=== PATIENT | male | born 1965 | race Two or more races ===

== ENCOUNTER 2018-09-03 07:18 | Emergency (ER) | payer BC ==
[~2018-09-03] VITALS: Ht 188 cm; Wt 122.0 kg
[2018-09-03] MEDS ORDERED: ACETAMINOPHEN 325 MG TAB PO ONE (07:45)
[2018-09-03 09:01] LABS: Basophils # (auto) 0.1 uL; Basophils % (auto) 0.5 % (0.0-2.0); Eosinophils # (auto) 0 uL; Eosinophils % (auto) 0.1 % (0.0-7.0); Hematocrit 44.8 % (41.0-53.0); Hemoglobin 15.1 g/dL (13.5-17.5); Lymphocytes # (auto) 0.8 uL; Lymphocytes % (auto) 6.1 % (10.0-50.0); Mean Corpuscular Hemoglobin 31.3 pg (28.0-32.0); Mean Corpuscular Hgb Conc. 33.6 g/dL (32.0-36.0); Monocytes # (auto) 0.7 uL; Neutrophils # (auto) 11.7 uL; Neutrophils % (auto) 88.3 % (37.0-80.0); Nucleated Red Blood Cells % 0.1 %; Platelet Count (auto) 233 10^3/uL (140-450); Red Blood Cells 4.82 10^6/uL (4.5-5.90); Red Cell Distribution Width 13.3 % (11.8-14.3); White Blood Cell 13.2 10^3/uL (4.4-10.8)
[2018-09-03 09:20] LABS: INR 0.95 (0.9-1.15); Partial Thromboplastin Time 22.4 sec (23.64-32.05); Prothrombin Time 10.3 sec (9.06-12.60)
[2018-09-03] MEDS ORDERED: SODIUM CHLORIDE 0.9% 1,000 ML IV ONE ×2 (09:20)
[2018-09-03 09:21] LABS: Albumin 3.5 g/dL (3.4-5.0); Potassium 3.9 mmol/L (3.5-5.1)
[2018-09-03 09:24] LABS: Bilirubin, Total 0.5 mg/dL (0.2-1.0); Total Protein 7.2 g/dL (6.4-8.2)
[2018-09-03] MEDS ORDERED: cefTRIAXone 1GM/50ML D5W 50 ML IV ONE (09:30)
[2018-09-03 10:01] VITALS: BP 99/58
[2018-09-03 12:18] LABS: Urine Bacteria FEW /hpf (None Seen); Urine Blood Negative /uL (Negative); Urine Mucus FEW (None Seen); Urine Specific Gravity 1.029 (1.001-1.035); Urine WBC 14 /hpf (0 - 3)
== END 2018-09-03 12:41 | disposition home or self-care (01) ==
LOC: ER 07:18
DX: N39.0 Urinary tract infection, site not specified (principal); E11.9 Type 2 diabetes mellitus without complications; I10 Essential (primary) hypertension
CPT/HCPCS: 36415; 71045; 80053; 81001; 83605; 85025; 85610; 85730; 87040; 93005; 94761; 96365; 99284; J0696; J7030

== ENCOUNTER 2021-04-17 20:06 | Emergency (ER) | payer BC ==
[~2021-04-17] VITALS: Ht 188 cm; Wt 120.2 kg
[2021-04-17 20:06] VITALS: BP 118/79
[2021-04-18 00:02] LABS: Basophils # (auto) 0 10 ^3/uL (0-0.2); Basophils % (auto) 0.5 % (0.0-2.0); Eosinophils # (auto) 0.1 10 ^3/uL (0-0.8); Hematocrit 48.7 % (41.0-53.0); Hemoglobin 16.8 g/dL (13.5-17.5); Lymphocytes # (auto) 0.9 10 ^3/uL (0.4-5.4); Lymphocytes % (auto) 13.6 % (10.0-50.0); Mean Corpuscular Hemoglobin 31.4 pg (28.0-32.0); Mean Corpuscular Hgb Conc. 34.6 g/dL (32.0-36.0); Mean Corpuscular Volume 90.9 fL (80.0-100.0); Monocytes % (auto) 14.7 % (0.0-12.0); Neutrophils # (auto) 4.8 10 ^3/uL (1.6-8.6); Neutrophils % (auto) 70.2 % (37.0-80.0); Nucleated Red Blood Cells % 0.2 %; Red Blood Cells 5.36 10^6/uL (4.5-5.90); Red Cell Distribution Width 13.2 % (11.8-14.3); White Blood Cell 6.8 10^3/uL (4.4-10.8)
[2021-04-18 00:22] LABS: Albumin 3.9 g/dL (3.4-5.0); Calcium 10.4 mg/dL (8.5-10.1)
[2021-04-18 00:24] LABS: Bilirubin, Total 0.8 mg/dL (0.2-1.0); Potassium 4.6 mmol/L (3.5-5.1); Total Protein 8.3 g/dL (6.4-8.2)
[2021-04-18] MEDS ORDERED: InsuLIN REG 1unit/0.01ml Soln (100units/ml) IV ONE (02:30)
[2021-04-18] MEDS ORDERED: InsuLIN REG 1unit/0.01ml Soln (100units/ml) SC ONE (07:45)
[2021-04-18] MEDS ORDERED: SODIUM CHLORIDE 0.9% 1,000 ML IV ONE ×2 (07:45→10:00)
== END 2021-04-18 12:50 | disposition home or self-care (01) ==
LOC: ER 20:10
DX: J06.9 Acute upper respiratory infection, unspecified (principal); E11.65 Type 2 diabetes mellitus with hyperglycemia; I10 Essential (primary) hypertension
CPT/HCPCS: 36415; 71045; 80053; 82010; 82962; 85025; 93005; 96361; 96372; 96374; 99285; J1815; J7030

== ENCOUNTER 2024-12-15 02:39 | Inpatient (IN) | payer BC, OTHER ==
[2024-12-14 18:10] VITALS: BP 112/55; PULSE 89; RESP 20; TEMP 97.7; O2SAT 92
[~2024-12-15] VITALS: Ht 188 cm; Wt 106.3 kg
--- NOTE | 2024-12-15 03:12 | ED.PDOC ---
Musculoskeletal HPI Comments 58-year-old male who came to ER for left foot pain. Patient has a history of diabetes, states for the past 5 days, he has been having redness and swelling of the left foot, with blackish discoloration. Seen and was prescribed doxycycline, however has offered no relief. Denies any fever, Chief Complaint: Lower Extremity Time Seen by MD: 03:10 Primary Care Provider: ? Reviewed Notes: Nurses Notes Allergies: Coded Allergies: NO KNOWN ALLERGIES (Unverified , 09/03/18) Mode of Arrival: Ambulatory Location: Left Extremity Location: Foot Timing: Days Prehospital treatment: None Severity: Moderate Able to Move Extremity: Yes Bear Weight: Fully Pain: Moderate Mechanism: Spontaneous Circumstances: Other (Diabetic) Onset of Symptoms: Spontaneous Symptoms: Swelling, Pain Associated signs and symptoms: Foot pain (Left) Past Medical History PAST MEDICAL HISTORY: DM, HTN Surgical History: Denies all surgeries Family History Family History: Reviewed,noncontributory to illness Social History Smoker: Non-Smoker Alcohol: Denies ETOH Use Drugs: Denies Drug Use Lives In: Home Constitutional: denies: chills, diaphoresis, fatigue, fever, malaise, sweats, weakness, others EENTM: denies: blurred vision, double vision, ear bleeding, ear discharge, ear drainage, ear pain, ear ringing, eye pain, eye redness, hearing loss, mouth pain, mouth swelling, nasal discharge, nose bleeding, nose congestion, nose pain, photophobia, tearing, throat pain, throat swelling, voice changes, others Respiratory: denies: cough, hemoptysis, orthopnea, SOB at rest, shortness of breath, SOB with excertion, stridor, wheezing, others Cardiovascular: denies: chest pain, dizzy spells, diaphoresis, Dyspnea on e xertion, edema, irregular heart beat, left arm pain, lightheadedness, palpitations, PND, syncope, others Gastrointestinal: denies: abdomen distended, abdominal pain, blood streaked bowels, constipated, diarrhea, dysphagia, difficulty swallowing, hematemesis, melena, nausea, poor appetite, poor fluid intake, rectal bleeding, rectal pain, vomiting, others Genitourinary: denies: burning, dysuria, flank pain, frequency, hematuria, incontinence, penile discharge, penile sore, pain, testicle pain, testicle swelling, urgency, others Neurological: denies: dizziness, fainting, headache, left sided numbness, left sided weakness, numbness, paresthesia, pre-existing deficit, right sided numbness, right sided weakness, seizure, speech problems, tingling, tremors, weakness, others Musculoskeletal: reports: others (Left foot redness); denies: back pain, gout, joint pain, joint swelling, muscle pain, muscle stiffness, neck pain Integumetry: denies: bruises, change in color, change in hair/nails, dryness, laceration, lesions, lumps, rash, wounds, others Allergic/Immunocompromised: denies: Difficulty Healing, Frequent Infections, Hives, Itching, others Hematologic/Lymphatic: denies: anemia, blood clots, easy bleeding, easy bruising, swollen glands, others Endocrine: denies: excessive hunger, excessive sweating, excessive thirst, excessive urination, flushing, intolerance to cold, intolerance to heat, unexplained weight gain, unexplained weight loss, others Psychiatric: denies: anxiety, bipolar disorder, depression, hopeless, panic disorder, schizophrenia, sleepless, suicidal, others Physical Exam General Appearance: No Apparent Distress, Normal HEENT: Normal ENT Inspection, Pharynx Normal, TMs Normal Neck: Full Range of Motion, Non-Tender, Normal, Normal Inspection Respiratory: Chest Non-Tender, Lungs Clear, No Accessory Muscle Use, No Respira tory Distress, Normal Breath Sounds Cardiovascular: No Edema, No JVD, No Murmur, No Gallop, Normal Peripheral Pulses, Regular Rate/Rhythm Breast Exam: Deferred Gastrointestinal: No Organomegaly, Non Tender, No Pulsatile Mass, Normal Bowel Sounds, Soft Genitalia: Deferred Pelvic: Deferred Rectal: Deferred Extremities: No calf tenderness, Normal capillary refill, Normal inspection, Normal range of motion, Non-tender, No pedal edema Musculoskeletal : Apperance: Normal Neurologic: Alert, shorthand reporter II-XII nml as Tested, No Motor Deficits, Normal Affect, Normal Mood, No Sensory Deficits Cerebellar Function: Normal Reflexes: Normal Skin: Dry, Normal Color, Warm Lymphatic: No Adenopathy Was a procedure done? Was a procedure done?: No Differential Diagnosis EXT Differential Diagnosis: Cellulitis, Deep Vein Thrombosis, Other (Osteomyelitis) Other Differential Diagnosis Diabetic foot X-Ray, Labs, Meds, VS Vital Signs Date Time Temp Pulse Resp B/P (MAP) Pulse Ox O2 Delivery O2 Flow Rate FiO2 12/15/24 02:40 97.7 116 20 123/80 97 97.7 Lab Test 12/15/24 03:05 Range/Units White Blood Count 7.9 4.4-10.8 10^3/uL Red Blood Count 4.93 4.5-5.90 10^6/uL Hemoglobin 16.1 13.5-17.5 g/dL Hematocrit 45.2 41.0-53.0 % Mean Corpuscular Volume 91.8 80.0-100.0 fL Mean Corpuscular Hemoglobin 32.8 H 28.0-32.0 pg Mean Corpuscular Hemoglobin Concent 35.7 32.0-36.0 g/dL Red Cell Distribution Width 12.5 11.8-14.3 % Platelet Count 257 140-450 10^3/uL Mean Platelet Volume 7.8 6.9-10.8 fL Neutrophils (%) (Auto) 51.2 37.0-80.0 % Lymphocytes (%) (Auto) 35.6 10.0-50.0 % Monocytes (%) (Auto) 10.8 0.0-12.0 % Eosinophils (%) (Auto) 2.0 0.0-7.0 % Basophils (%) (Auto) 0.4 0.0-2.0 % Neutrophils # (Auto) 4.0 1.6-8.6 10 ^3/uL Lymphocytes # (Auto) 2.8 0.4-5.4 10 ^3/uL Monocytes # (Auto) 0.9 0-1.3 10 ^3/uL Eosinophils # (Auto) 0.2 0-0.8 10 ^3/uL Basophils # (Auto) 0 0-0.2 10 ^3/uL Nucleated Red Blood Cells 0.0 % Sodium Level 135 L 136-145 mmol/L Potassium Level 4.0 3.5-5.1 mmol/L Chloride Level 102 98-107 mmol/L Carbon Dioxide Level 22 20-31 mmol/L Anion Gap 11 5-15 Blood Urea Nitrogen 13 9-23 mg/dL Creatinine 0.79 0.700-1.30 mg/dL Glomerular Filtration Rate Calc 104 >90 mL/min BUN/Creatinine Ratio 16.5 10.0-20.0 Serum Glucose 341 H 74-106 mg/dL Lactic Acid Level 1.1 0.4-2.0 mmol/L Calcium Level 10.3 8.7-10.4 mg/dL Total Bilirubin 0.7 0.2-1.0 mg/dL Aspartate Amino Transferase (AST) 17 13-40 U/L Alanine Aminotransferase (ALT) 23 7-40 U/L Alkaline Phosphatase 96 46-116 U/L Total Protein 7.8 5.7-8.2 g/dL Albumin 4.6 3.2-4.8 g/dL Time of 1ST Reevaluation: 03:07 Reevaluation 1ST: Unchanged Patient Education/Counseling: Diagnosis, Treatment Family Education/Counseling: No Family Present Sepsis Sepsis Reasesment Focused Exam Orders: Laboratory Tests 12/15/24 03:05: Lactic Acid Level 1.1 Departure 1 Departure Time of Disposition: 04:28 Impression: Primary Impression: Hyperglycemia Additional Impression: Cellulitis of left foot Disposition: ADMITTED INPATIENT Admit to: Med Surg Condition: Guarded Comments 58-year-old male with a history of poorly controlled diabetes now with left foot redness and swelling and pain. The foot is quite swollen and erythematous. Blood sugar is high at 350. Patient was given IV fluids and IV Ancef and vancomycin antibiotics. I suspect diabetic left foot cellulitis. Also uncontrolled type 2 diabetes with hyperglycemia. patient will need admission for supportive care and further workup. Critical Care Note Critical Care Time?: No Stability Stability form required: No Heart Score Heart Score: Heart Score Response (Comments) Value History N/A 0 EKG N/A 0 Age N/A 0 Risk Factors N/A 0 Troponin N/A 0 Total 0 I personally scribed for MARILIA ROMO MD ([email or web address]) on 12/15/24 at 03:12. Electronically submitted by Jean Marie Block ([email or web address]). MARILIA ROMO MD Dec 15, 2024 03:12
[2024-12-15 03:29] LABS: Hematocrit 45.2 % (41.0-53.0); Hemoglobin 16.1 g/dL (13.5-17.5); Mean Corpuscular Hemoglobin 32.8 pg (28.0-32.0); Mean Corpuscular Volume 91.8 fL (80.0-100.0); Nucleated Red Blood Cells % 0.0 %
[2024-12-15 03:47] LABS: Alanine Aminotransferase 23 U/L (7-40); Albumin 4.6 g/dL (3.2-4.8); Alkaline Phosphatase 96 U/L (46-116); Anion Gap 11 (5-15); BUN/Creatinine Ratio 16.5 (10.0-20.0); Bilirubin, Total 0.7 mg/dL (0.2-1.0); Blood Urea Nitrogen 13 mg/dL (9-23); Calcium 10.3 mg/dL (8.7-10.4); Carbon Dioxide 22 mmol/L (20-31); Chloride 102 mmol/L (98-107); Potassium 4.0 mmol/L (3.5-5.1); Total Protein 7.8 g/dL (5.7-8.2)
--- NOTE | 2024-12-15 03:53 | DVH ---
CLINICAL INDICATION: red swelling TECHNIQUE: XY L FOOT 3 VIEW XRAY Comparison: None FINDINGS/IMPRESSION: : There is no evidence of acute fracture or dislocation. Soft tissues are unremarkable. Atherosclerotic vascular calcifications
[2024-12-15 04:06] LABS: Glucose 341 mg/dL (74-106); Sodium 135 mmol/L (136-145)
[2024-12-15] MEDS: InsuLIN REG 1unit/0.01ml Soln (100units/ml) SC ONE (04:30)
[2024-12-15] MEDS: SODIUM CHLORIDE 0.9% 1,000 ML IV ONE (04:30)
[2024-12-15] MEDS: VANCOMYCIN 1GM/250ML KIT 250 ML IV ONE (09:00)
[2024-12-15] MEDS ORDERED: ACETAMINOPHEN 325 MG TAB PO PRN (09:45)
[2024-12-15] MEDS ORDERED: DEXTROSE (50%) 50ML SYRG IV PRN (09:45)
--- NOTE | 2024-12-15 09:47 | DVHHP2 ---
History of Present Illness History of Present Illness This is a 68-year-old male with past medical history of Type 2 diabetes mellitus not on any medication. Patient came to ER with left foot pain with redness dorso-lateral aspect of left foot for 5 days which is 10/10 during walking , and relieved mildly on rest, localized and occasionally radiate to tip of the finger. Denies any trauma or insect bite. Patient went to urgent care and prescribed doxycycline which does not helps and wound became getting worse day by day. He is not taking any medicine for last 1 year. Patient currently denies any fever, SOB, chest pain, abdominal pain, dysuria or any other acute distress. PAST MEDICAL HISTORY: DM2. Surgical History: Denies all surgeries Family History: father bone cancer, grandmother unknown cancer Social History: Smoker: Non-Smoker Alcohol: occasional ETOH Use Drugs: Denies Drug Use Lives In: Home pcp: not selected Review of Systems Constitutional: Yes: Malaise; No: Fever, Chills, Sweats, Weakness, Other Eyes: No: Pain, Vision change, Conjunctivae inflammation, Eyelid inflammation, Other, Redness ENT: No: Ear pain, Ear discharge, Nose pain, Nose discharge, Nose congestion, Mouth pain, Mouth swelling, Throat pain, Throat swelling, Other Respiratory: No: Cough, Dry, Shortness of breath, SOB with excertion, Wheezing, Hemoptysis, Pleuritic Pain, Sputum, Wheezing, Other Cardiovascular: No: Chest Pain, Palpitations, Orthopnea, Paroxysmal Noc. Dy spnea, Edema, Lt Headedness, Other Gastrointestinal: No: Nausea, Vomiting, Abdominal Pain, Diarrhea, Constipation, Melena, Hematochezia, Other Genitourinary: No Dysuria, No Frequency, No Incontinence, No Hematuria, No Retention, No Other Musculoskeletal: foot pain (Erythema and local swelling dorsolateral aspect of left foot); No: other, neck pain, shoulder pain, arm pain, back pain, hand pain, leg pain Skin: No: Rash, Lesions, Jaundice, Bruising, Other Neurological: No: Weakness, Numbness, Incoordination, Change in speech, Confusion, Seizures, Other Allergies: Coded Allergies: NO KNOWN ALLERGIES (Unverified , 09/03/18) Medications Current Medications Medications Dose Ordered Sig/Ilir Route Start Time Stop Time Status Last Admin Dose Admin Sodium Chloride 1,000 ml @ 75 mls/hr [id number] IV 12/15/24 09:45 UNV Acetaminophen 325 mg Q4HP PRN PO 12/15/24 09:45 UNV Acetaminophen/ Hydrocodone Bitart 1 tab Q4HP PRN PO 12/15/24 09:45 UNV Zinc Sulfate 220 mg DAILY PO 12/15/24 10:00 UNV Ascorbic Acid 500 mg BID PO 12/15/24 10:00 UNV Enoxaparin Sodium 40 mg DAILY SC 12/15/24 10:00 UNV Exam Vital Signs Vital Signs Date Time Temp Pulse Resp B/P (MAP) Pulse Ox O2 Delivery O2 Flow Rate FiO2 12/15/24 08:02 97 12/15/24 06:50 20 96 Room Air 12/15/24 06:50 98.7 126/83 (97) 98.7 General Appearance: Alert, Oriented X3, Cooperative, No acute distress, mild distress HEENT: Atraumatic, PERRLA Respiratory: Clear to auscultation, Normal air movement Cardiovascular: Regular rate, Normal S1, Normal S2, No murmurs Abdominal: Normal bowel sounds, Soft, No tenderness, No hepatospenomegaly Extremities: No clubbing, No cyanosis, Other (Mild erythema and edema localized dorsal aspect of left foot) Neuro: Normal gait, Normal speech, Strength at 5/5 X4 ext Labs/Xrays Labs Test 12/15/24 07:21 12/15/24 03:05 Range/Units POC Glucose 306 H 70-106 mg/dl White Blood Count 7.9 4.4-10.8 10^3/uL Red Blood Count 4.93 4.5-5.90 10^6/uL Hemoglobin 16.1 13.5-17.5 g/dL Hematocrit 45.2 41.0-53.0 % Mean Corpuscular Volume 91.8 80.0-100.0 fL Mean Corpuscular Hemoglobin 32.8 H 28.0-32.0 pg Mean Corpuscular Hemoglobin Concent 35.7 32.0-36.0 g/dL Red Cell Distribution Width 12.5 11.8-14.3 % Platelet Count 257 140-450 10^3/uL Mean Platelet Volume 7.8 6.9-10.8 fL Neutrophils (%) (Auto) 51.2 37.0-80.0 % Lymphocytes (%) (Auto) 35.6 10.0-50.0 % Monocytes (%) (Auto) 10.8 0.0-12.0 % Eosinophils (%) (Auto) 2.0 0.0-7.0 % Basophils (%) (Auto) 0.4 0.0-2.0 % Neutrophils # (Auto) 4.0 1.6-8.6 10 ^3/uL Lymphocytes # (Auto) 2.8 0.4-5.4 10 ^3/uL Monocytes # (Auto) 0.9 0-1.3 10 ^3/uL Eosinophils # (Auto) 0.2 0-0.8 10 ^3/uL Basophils # (Auto) 0 0-0.2 10 ^3/uL Nucleated Red Blood Cells 0.0 % Sodium Level 135 L 136-145 mmol/L Potassium Level 4.0 3.5-5.1 mmol/L Chloride Level 102 98-107 mmol/L Carbon Dioxide Level 22 20-31 mmol/L Anion Gap 11 5-15 Blood Urea Nitrogen 13 9-23 mg/dL Creatinine 0.79 0.700-1.30 mg/dL Glomerular Filtration Rate Calc 104 >90 mL/min BUN/Creatinine Ratio 16.5 10.0-20.0 Serum Glucose 341 H 74-106 mg/dL Lactic Acid Level 1.1 0.4-2.0 mmol/L Calcium Level 10.3 8.7-10.4 mg/dL Total Bilirubin 0.7 0.2-1.0 mg/dL Aspartate Amino Transferase (AST) 17 13-40 U/L Alanine Aminotransferase (ALT) 23 7-40 U/L Alkaline Phosphatase 96 46-116 U/L Total Protein 7.8 5.7-8.2 g/dL Albumin 4.6 3.2-4.8 g/dL SEPSIS Sepsis Screen Date sepsis recognized/suspect: Dec 15, 2024 Time Sepsis recognized/suspect: 06 Recent Procedure: No On Antibiotic Therapy: No Respiratory Rate >20: No Heart Rate >90: No Temp<36 C (96.8 F) or >38.3 C: No SBP <90 or MAP <65 mmHG: No New Acute Mental Status Change: No Is the patient on CPAP, BIPAP,: No Physician Orders Blood Culture (12/15/24 03:06) L Foot 3 View Xray (12/15/24 03:06) Retail Branch Manager (12/15/24 ) Admit (12/15/24 09:37) Code Status (12/15/24 09:37) Sodium Chloride 0.9% (12/15/24 09:45) Acetaminophen Tablet (Tylenol Tablet) (12/15/24 09:45) Hydrocodone-Acet 5/325mg Tab ([place] 5/32 (12/15/24 09:45) Zinc Sulfate (12/15/24 10:00) Ascorbic Acid Tablet (Vitamin C Tablet) (12/15/24 10:00) Condition: Fair (12/15/24 09:37) Enoxaparin Sodium (Lovenox) (12/15/24 10:00) Notify Of Changes From Base (12/15/24 09:37) Consistent Carb(Ccho)Diabetes (12/15/24 Lunch) Glucose Blood (Accu-Chek Comfort Curve T (12/15/24 11:30) Mild Sliding Scale (12/15/24 11:30) Dextrose 50% Syringe (12/15/24 09:45) Vital Signs Date Time Temp Pulse Resp B/P (MAP) Pulse Ox O2 Delivery O2 Flow Rate FiO2 12/15/24 08:02 97 12/15/24 06:50 118 20 96 Room Air 12/15/24 06:50 98.7 118 20 126/83 (97) 96 98.7 12/15/24 02:40 97.7 116 20 123/80 97 97.7 Laboratory Tests Test 12/15/24 03:05 Lactic Acid Level 1.1 mmol/L (0.4-2.0) White Blood Count 7.9 10^3/uL (4.4-10.8) Medications Medications Dose Ordered Sig/Ilir Route Start Time Stop Time Status Last Admin Dose Admin Insulin Human Regular 4 units ONCE ONCE SC 12/15/24 04:30 12/15/24 04:31 DC 12/15/24 04:30 4 UNITS Sodium Chloride 1,000 ml @ 1,000 mls/hr Q1H ONCE IV 12/15/24 04:30 12/15/24 05:29 DC 12/15/24 04:30 1,000 MLS/HR Vancomycin HCl 250 ml @ 250 mls/hr ONCE ONCE IV 12/15/24 03:15 12/15/24 04:14 DC 12/15/24 09:00 250 MLS/HR Assessment/Plan Assessment/Plan Left foot cellulitis Gram-positive or Gram-negative bacteria SIRS not sepsis Left foot pain X-ray left foot: There is no evidence of acute fracture or dislocation. Soft tissues are unremarkable. In ER patient received vanco and cefazolin Started Zosyn and vancomycin Blood culture sent Intravenous fluid Pain management Hyponatremia Serum sodium level 135 BMP Type 2 diabetes mellitus with hyperglycemia CMP glucose 306 Patient not on any medication Avoid sugar and sugar containing food Hemoglobin A1c Insulin sliding scale Diet :carbohydrate consistent GI prophylaxis: Pantoprazole 40 mg p.o. daily DVT prophylaxis: Lovenox 40 mg sc daily Goals of care discussions. More than 23 minute spent with patient. Full code status. Case discussed with Dr. Golden Plan discussed with: Patient, Other (Nurse) My Orders Orders - LANCE PENALOZA Procedure Category Date Status Time Admit ADMIT 12/15/24 Transmitted 09:37 Code Status CODE 12/15/24 Transmitted 09:37 Sodium Chloride 0.9% PHA 12/15/24 Logged 09:45 Acetaminophen Tablet PHA 12/15/24 Logged (Tylenol Tablet) 09:45 Hydrocodone-Acet PHA 12/15/24 Logged 5/325mg Tab ([place] 09:45 Zinc Sulfate PHA 12/15/24 Logged 10:00 Ascorbic Acid Tablet PHA 12/15/24 Logged (Vitamin C Tablet) 10:00 Condition: Fair PARMINDER 12/15/24 In Process 09:37 Enoxaparin Sodium PHA 12/15/24 Logged (Lovenox) 10:00 Notify Of Changes PARMINDER 12/15/24 In Process From Base 09:37 Consistent DIET 12/15/24 Transmitted Carb(Ccho)Diabetes Lunch Glucose Blood PHA 12/15/24 Verified (Accu-Chek Comfort 11:30 Mild Sliding Scale PHA 12/15/24 Verified 11:30 Dextrose 50% Syringe PHA 12/15/24 Verified 09:45 Date of Service: Dec 15, 2024 Billing Provider: PEPITO GOLDEN MD Common Visit Codes: [id number] INP/OBS CARE (HIGH) Secondary Visit Codes: [id number] CARE PLAN 30 MINUTES LANCE PENALOZA RESIDENT Dec 15, 2024 09:47
[2024-12-15] MEDS: ACCU-CHEK COMFORT CURVE STRIP VI SCH (11:30)
[2024-12-15] MEDS ORDERED: InsuLIN REG 1unit/0.01ml Soln (100units/ml) SC SCH (11:30)
[2024-12-15] MEDS: ceFAZolin 1GM/50ML 50 ML IV ONE (12:12)
[2024-12-15] MEDS: ZINC SULFATE 220mg CAP or TAB PO SCH (14:03)
[2024-12-15] MEDS: SODIUM CHLORIDE 0.9% 1,000 ML IV SCH (14:04)
[2024-12-15] MEDS: ENOXAPARIN SOD 40 MG/0.4 ML SYRINGE SC SCH (14:04)
[2024-12-15] MEDS: ASCORBIC ACID 500 MG TAB PO SCH (14:04)
[2024-12-15] MEDS: INSULIN LISPRO (HUMAN) 100 UNITS/ML ML SC SCH (15:30)
[2024-12-15] MEDS ORDERED: VANCOMYCIN PER PHARMACY 0 MG IV SCH (16:30)
[2024-12-15] MEDS ORDERED: INSULIN LISPRO (HUMAN) 100 UNITS/ML ML SC SCH (17:00)
[2024-12-15] MEDS: PIPERACILLIN-TAZOB 3.375GM 100 ML IV ONE (17:24)
[2024-12-15 18:09] VITALS: BP 126/73; PULSE 88; RESP 16; TEMP 98.4; O2SAT 97
[2024-12-15 19:28] VITALS: BP 112/69; PULSE 93; RESP 15; TEMP 98.8; O2SAT 96
[2024-12-15] MEDS: VANCOMYCIN 1GM/250ML KIT 250 ML IV SCH (19:59)
[2024-12-15 21:33] VITALS: PULSE 78; RESP 18; O2SAT 96
[2024-12-15] MEDS: PIPERACILLIN-TAZOB 3.375GM 100 ML IV SCH (23:53)
[2024-12-16] VITALS (7 sets, daily range): BP systolic 105–134; BP diastolic 67–83; PULSE 78–85; RESP 16–20; TEMP 97.5–98.5; O2SAT 95–98
[2024-12-16] MEDS: HYDROcodone-ACET 5/325MG TAB PO PRN (00:05)
[2024-12-16 06:26] LABS: Anion Gap 8 (5-15); Carbon Dioxide 25 mmol/L (20-31); Chloride 103 mmol/L (98-107); Potassium 4.2 mmol/L (3.5-5.1)
[2024-12-16 06:27] LABS: Calcium 9.3 mg/dL (8.7-10.4)
[2024-12-16 06:32] LABS: BUN/Creatinine Ratio 15.7 (10.0-20.0); Blood Urea Nitrogen 11 mg/dL (9-23); Glucose 242 mg/dL (74-106); Sodium 136 mmol/L (136-145); Triglycerides 150 mg/dL (< 150)
[2024-12-16 06:34] LABS: Cholesterol 133 mg/dL (< 200); Hematocrit 40.4 % (41.0-53.0); Hemoglobin 14.5 g/dL (13.5-17.5); Mean Corpuscular Hemoglobin 32.2 pg (28.0-32.0); Mean Corpuscular Volume 89.7 fL (80.0-100.0); Nucleated Red Blood Cells % 0.1 %
[2024-12-16 06:53] LABS: HDL Cholesterol 26 mg/dL (40-59)
[2024-12-16] MEDS: INSULIN LISPRO (HUMAN) 100 UNITS/ML ML SC SCH (17:00)
--- NOTE | 2024-12-16 20:16 | DVHPNRES ---
Progress Note Date Seen: Dec 16, 2024 Resident Creating Document: LANCE PENALOZA RESIDENT Medical Necessity Reason Pt with a Central, PICC or Fol: No Subjective Review of Systems This is a 68-year-old male with past medical history of Type 2 diabetes mellitus not on any medication. Patient came to ER with left foot pain with redness dorso-lateral aspect of left foot for 5 days which is 10/10 during walking , and relieved mildly on rest, localized and occasionally radiate to tip of the finger. Denies any trauma or insect bite. Patient went to urgent care and prescribed doxycycline which does not helps and wound became getting worse day by day. He is not taking any medicine for last 1 year. Patient currently denies any fever, SOB, chest pain, abdominal pain, dysuria or any other acute distress. PAST MEDICAL HISTORY: DM2. Surgical History: Denies all surgeries Family History: father bone cancer, grandmother unknown cancer Social History: Smoker: Non-Smoker Alcohol: occasional ETOH Use Drugs: Denies Drug Use Lives In: Home pcp: not selected Patient seen and evaluated today. Patient pain is improving. Continue vanc and Zosyn. Waiting for blood culture and wound culture report. Objective vital signs Vital Sign Date Time Temp Pulse Resp B/P (MAP) Pulse Ox O2 Delivery O2 Flow Rate FiO2 12/16/24 17:00 97.5 81 18 134/79 (97) 95 97.5 12/16/24 08:20 Room Air* 0 21 Total Intake and Output 12/15/24 12/15/24 12/16/24 15:00 23:00 07:00 Intake Total 1250 ml 250 ml 200 ml Balance 1250 ml 250 ml 200 ml medications Current Medications Medications Dose Ordered Sig/Ilir Route Start Time Stop Time Status Last Admin Dose Admin Sodium Chloride 1,000 ml @ 75 mls/hr [id number] IV 12/15/24 09:45 12/15/24 23:00 75 MLS/HR Acetaminophen 325 mg Q4HP PRN PO 12/15/24 09:45 Acetaminophen/ Hydrocodone Bitart 1 tab Q4HP PRN PO 12/15/24 09:45 12/16/24 00:05 1 TAB Zinc Sulfate 220 mg DAILY PO 12/15/24 10:00 12/16/24 10:38 220 MG Ascorbic Acid 500 mg BID PO 12/15/24 10:00 12/16/24 10:38 500 MG Enoxaparin Sodium 40 mg DAILY SC 12/15/24 10:00 12/16/24 10:40 40 MG Diagnostic Test (Pha) 1 strip ACHS 12/15/24 11:30 12/16/24 17:00 1 STRIP Dextrose 50 ml UD PRN IV 12/15/24 09:45 Insulin Human Lispro AC SC 12/15/24 14:45 12/16/24 18:59 4 UNITS Vancomycin HCl 0 ml @ 0 mls/hr UD IV 12/15/24 16:30 Piperacillin Sod/ Tazobactam Sod 100 ml @ 25 mls/hr Q6HR IV 12/16/24 00:00 12/16/24 19:05 25 MLS/HR Vancomycin HCl 250 ml @ 200 mls/hr Q12H IV 12/15/24 20:00 12/16/24 10:36 200 MLS/HR Insulin Glargine 10 units HS SC 12/16/24 22:00 Insulin Human Lispro 4 units AC SC 12/16/24 17:00 Examination General Appearance: Alert, Oriented X3, Cooperative, No acute distress, mild distress HEENT: Atraumatic, PERRLA Respiratory: Clear to auscultation, Normal air movement Cardiovascular: Regular rate, Normal S1, Normal S2, No murmurs Abdominal: Normal bowel sounds, Soft, No tenderness, No hepatospenomegaly Extremities: No clubbing, No cyanosis, Other (Mild erythema and edema localized dorsal aspect of left foot) Neuro: Normal gait, Normal speech, Strength at 5/5 X4 ext laboratory and microbiology Laboratory Tests 12/16/24 05:20 Test 12/16/24 05:20 Range/Units Serum Glucose 242 H 74-106 mg/dL Microbiology Date/Time Source Procedure Growth Status 12/15/24 03:08 Blood Blood Culture - Preliminary NO GROWTH AFTER 24 HOURS OF INCUBATION. Resulted Problem List/Assessment/Plan Problem List/Assessment/Plan Left foot cellulitis Gram-positive or Gram-negative bacteria SIRS not sepsis Left foot pain X-ray left foot: There is no evidence of acute fracture or dislocation. Soft tissues are unremarkable. In ER patient received vanco and cefazolin Started Zosyn and vancomycin Blood culture, wound culture Intravenous fluid Pain management Hyponatremia Serum sodium level 135>136 BMP Vitamin-D deficiency Vitamin-D level 21.4 Vitamin-D 92261 units p.o. Q weekly Type 2 diabetes mellitus with hyperglycemia CMP glucose high Patient not on any home medicine Avoid sugar and sugar containing food Hemoglobin A1c 12.0 Insulin sliding scale Started Lantus 10 units bedtime Lispro 4 units sc before meal Monitor blood sugars Diet :carbohydrate consistent GI prophylaxis: Pantoprazole 40 mg p.o. daily DVT prophylaxis: Lovenox 40 mg sc daily Goals of care discussions. More than 21 minute spent with patient. Full code status. Case discussed with Dr. Golden Plan discussed with: Patient, Other (Nurse) My Orders My Orders Orders - LANCE PENALOZA Procedure Category Date Status Time * Wound Consult CONS 12/16/24 Transmitted Creatinine LAB 12/17/24 Verified 07:00 Wound Culture W/ Gs MARTY 12/16/24 Uncollected 12:48 Insulin Lantus PHA 12/16/24 In Process (Glargine) (Lantus) 22:00 Insulin Lispro PHA 12/16/24 In Process (Human) (Humalog) 17:00 Date of Service: Dec 16, 2024 Billing Provider: PEPITO GOLDEN MD Common Visit Codes: [id number] INP/OBS CARE(HIGH) LANCE PENALOZA RESIDENT Dec 16, 2024 20:16 MARTIN WINTERS RESIDENT Dec 19, 2024 06:59 PEPITO GOLDEN MD Dec 21, 2024 21:28
[2024-12-16] MEDS: VANCOMYCIN 1GM/250ML KIT 250 ML IV SCH (21:52)
[2024-12-16] MEDS: INSULIN LANTUS (GLARGINE) 1 /0.01ml (100units/ml) SC SCH (22:00)
[2024-12-17 01:02] VITALS: BP 111/69; PULSE 84; RESP 16; TEMP 97.9; O2SAT 95
[2024-12-17 05:00] VITALS: BP 102/62; PULSE 81; RESP 16; TEMP 98.4; O2SAT 93
[2024-12-17 06:32] LABS: Chloride 100 mmol/L (98-107); Potassium 4.1 mmol/L (3.5-5.1)
[2024-12-17 06:33] LABS: Anion Gap 7 (5-15); Calcium 9.5 mg/dL (8.7-10.4); Carbon Dioxide 28 mmol/L (20-31)
[2024-12-17 06:37] LABS: Hematocrit 41.2 % (41.0-53.0); Hemoglobin 15.2 g/dL (13.5-17.5); Mean Corpuscular Hemoglobin 33.0 pg (28.0-32.0); Mean Corpuscular Volume 89.7 fL (80.0-100.0); Nucleated Red Blood Cells % 0.1 %; Sodium 135 mmol/L (136-145)
[2024-12-17 06:38] LABS: BUN/Creatinine Ratio 13.7 (10.0-20.0); Blood Urea Nitrogen 10 mg/dL (9-23)
[2024-12-17 06:39] LABS: Glucose 257 mg/dL (74-106)
[2024-12-17] MEDS: INSULIN LANTUS (GLARGINE) 1 /0.01ml (100units/ml) SC ONE (09:27)
--- NOTE | 2024-12-17 16:03 | DVH ---
CLINICAL HISTORY: LEFT FOOT CELLULITIS TO RULE OUT OSTEOMYELITIS. TECHNIQUE: CT of the left lower extremity was performed without intravenous contrast. This exam was p erformed according to our departmental dose optimization program. Up-to-date CT equipment and radiati on dose reduction techniques are utilized as appropriate. CTDI 7.75 mGy DLP 188.65 mGy.cm COMPARISON: None FINDINGS: Normal mineralization and alignment. Joint spaces are preserved. No acute fracture. No focal osteope martell or cortical destruction to suggest osteomyelitis. There is a loculated fluid collection at the pl mely aspect of the lateral hindfoot at the level of the 5th MTP joint measuring 1.9 x 2.3 cm on seri es 3, image 153. Mild subcutaneous edema in the left foot. Calcified athero sclerosis is seen. No sof t tissue gas. IMPRESSION: 1. No acute fracture or traumatic malalignment. No focal osteopenia or cortical destruction to sugge st osteomyelitis. 2. Loculated fluid collection of the plantar lateral hindfoot at the level of the 5th MTP joint which could reflect small abscess (measuring up to 2.3 cm). 3. Mild subcutaneous edema of the left foot.
[2024-12-17 17:00] VITALS: BP 125/78; PULSE 84; RESP 18; TEMP 98.1; O2SAT 95
[2024-12-17 20:00] VITALS: RESP 16
[2024-12-17 21:00] VITALS: BP 125/73; PULSE 89; RESP 18; TEMP 97.9; O2SAT 96
[2024-12-17] MEDS: INSULIN LANTUS (GLARGINE) 1 /0.01ml (100units/ml) SC SCH (21:57)
--- NOTE | 2024-12-17 22:11 | DVHPNRES ---
Progress Note Date Seen: Dec 17, 2024 Resident Creating Document: LANCE PENALOZA RESIDENT Medical Necessity Reason Pt with a Central, PICC or Fol: No Subjective Review of Systems This is a 68-year-old male with past medical history of Type 2 diabetes mellitus not on any medication. Patient came to ER with left foot pain with redness dorso-lateral aspect of left foot for 5 days which is 10/10 during walking , and relieved mildly on rest, localized and occasionally radiate to tip of the finger. Denies any trauma or insect bite. Patient went to urgent care and prescribed doxycycline which does not helps and wound became getting worse day by day. He is not taking any medicine for last 1 year. Patient currently denies any fever, SOB, chest pain, abdominal pain, dysuria or any other acute distress. PAST MEDICAL HISTORY: DM2. Surgical History: Denies all surgeries Family History: father bone cancer, grandmother unknown cancer Social History: Smoker: Non-Smoker Alcohol: occasional ETOH Use Drugs: Denies Drug Use Lives In: Home pcp: not selected Patient seen evaluated bedside. Patient deep foot pain significantly improved. Currently on IV antibiotic. CT left foot ordered to rule out osteomyelitis. Objective vital signs Vital Sign Date Time Temp Pulse Resp B/P (MAP) Pulse Ox O2 Delivery O2 Flow Rate FiO2 12/17/24 21:00 97.9 89 18 125/73 (90) 96 97.9 12/17/24 08:05 Room Air* 0 21 Total Intake and Output 12/16/24 12/16/24 12/17/24 15:00 23:00 07:00 Intake Total 250 ml 580 ml 2150 ml Balance 250 ml 580 ml 2150 ml medications Current Medications Medications Dose Ordered Sig/Ilir Route Start Time Stop Time Status Last Admin Dose Admin Sodium Chloride 1,000 ml @ 75 mls/hr [id number] IV 12/15/24 09:45 12/17/24 00:12 75 MLS/HR Acetaminophen 325 mg Q4HP PRN PO 12/15/24 09:45 Acetaminophen/ Hydrocodone Bitart 1 tab Q4HP PRN PO 12/15/24 09:45 12/17/24 21:40 1 TAB Zinc Sulfate 220 mg DAILY PO 12/15/24 10:00 12/17/24 09:24 220 MG Ascorbic Acid 500 mg BID PO 12/15/24 10:00 12/17/24 21:41 500 MG Enoxaparin Sodium 40 mg DAILY SC 12/15/24 10:00 12/17/24 09:33 40 MG Diagnostic Test (Pha) 1 strip ACHS 12/15/24 11:30 12/17/24 21:42 1 STRIP Dextrose 50 ml UD PRN IV 12/15/24 09:45 Insulin Human Lispro AC SC 12/15/24 14:45 12/17/24 17:37 2 UNITS Vancomycin HCl 0 ml @ 0 mls/hr UD IV 12/15/24 16:30 Piperacillin Sod/ Tazobactam Sod 100 ml @ 25 mls/hr Q6HR IV 12/16/24 00:00 12/17/24 17:39 25 MLS/HR Insulin Human Lispro 4 units AC SC 12/16/24 17:00 12/17/24 17:39 4 UNITS Vancomycin HCl 250 ml @ 200 mls/hr Q12HR IV 12/16/24 22:00 12/17/24 21:43 200 MLS/HR Insulin Glargine 14 units HS MO 12/17/24 22:00 12/17/24 21:57 14 UNITS Examination General Appearance: Alert, Oriented X3, Cooperative, No acute distress, mild distress HEENT: Atraumatic, PERRLA Respiratory: Clear to auscultation, Normal air movement Cardiovascular: Regular rate, Normal S1, Normal S2, No murmurs Abdominal: Normal bowel sounds, Soft, No tenderness, No hepatospenomegaly Extremities: No clubbing, No cyanosis, Mild erythema and edema localized dorsal aspect of left foot Neuro: Normal gait, Normal speech, Strength at 5/5 X4 ext laboratory and microbiology Laboratory Tests 12/17/24 05:22 Test 12/17/24 05:22 Range/Units Serum Glucose 257 H 74-106 mg/dL Microbiology Date/Time Source Procedure Growth Status 12/15/24 03:08 Blood Blood Culture - Preliminary NO GROWTH AFTER 48 HOURS OF INCUBATION. Resulted Problem List/Assessment/Plan Problem List/Assessment/Plan Left foot cellulitis Gram-positive or Gram-negative bacteria probably complicated with abscess Questionable abscess on lateral surface of left foot SIRS not sepsis X-ray left foot: There is no evidence of acute fracture or dislocation. Soft tissues are unremarkable. Blood culture, wound culture Intravenous fluid Pain management Completed CT left foot shows: No acute fracture or traumatic malalignment. No focal osteopenia or cortical destruction to suggest osteomyelitis. Loculated fluid collection of the plantar lateral hind foot at the level of the 5th MTP joint which could reflect small abscess (measuring up to 2.3 cm). Currently under empiric IV antibiotic (vancomycin and Zosyn, previously cefazolin) Podiatry consulted Mild Hyponatremia-improved Monitor Vitamin-D deficiency Replenished Type 2 diabetes mellitus with simple hyperglycemia - uncontrolled (hemoglobin A1c 12%) CMP glucose high Patient not on any home medicine On insulin therapy: Insulin sliding scale, Lantus bedtime, Lispro before meal Gave advice on healthy lifestyle habits Diet consistent with carbohydrates GI prophylaxis: Pantoprazole 40 mg p.o. daily DVT prophylaxis: Lovenox 40 mg sc daily Goals of care discussions. More than 23 minute spent with patient. Full code status. Case discussed with Dr. Golden Plan discussed with: Patient, Other (Nurse) My Orders My Orders Orders - LANCE PENALOZA RESIDENT Procedure Category Date Status Time Left Lower Extremity CT 12/17/24 Resulted W/O Con 14:51 Date of Service: Dec 17, 2024 Billing Provider: PEPITO GOLDEN MD Common Visit Codes: [id number] INP/OBS CARE(HIGH) LANCE PENALOZA RESIDENT Dec 17, 2024 22:11 MARTIN WINTERS RESIDENT Dec 19, 2024 07:05 PEPITO GOLDEN MD Dec 21, 2024 21:41
[2024-12-18] VITALS (7 sets, daily range): BP systolic 95–143; BP diastolic 62–95; PULSE 75–91; RESP 16–20; TEMP 97.5–98.6; O2SAT 94–97
[2024-12-18 06:48] LABS: Alanine Aminotransferase 21 U/L (7-40); Albumin 3.9 g/dL (3.2-4.8); Alkaline Phosphatase 75 U/L (46-116); Anion Gap 9 (5-15); BUN/Creatinine Ratio 14.3 (10.0-20.0); Bilirubin, Total 0.6 mg/dL (0.2-1.0); Blood Urea Nitrogen 10 mg/dL (9-23); Calcium 9.6 mg/dL (8.7-10.4); Carbon Dioxide 25 mmol/L (20-31); Chloride 103 mmol/L (98-107); Glucose 238 mg/dL (74-106); Potassium 3.6 mmol/L (3.5-5.1); Sodium 137 mmol/L (136-145); Total Protein 6.7 g/dL (5.7-8.2)
[2024-12-18] MEDS: VANCOMYCIN 1.25GM/250ML 250 ML IV SCH (11:00)
[2024-12-18] MEDS: PIPERACILLIN-TAZOB 3.375GM 100 ML IV SCH (21:32)
--- NOTE | 2024-12-18 21:46 | DVHPNRES ---
Progress Note Date Seen: Dec 18, 2024 Resident Creating Document: LANCE PENALOZA RESIDENT Medical Necessity Reason Pt with a Central, PICC or Fol: No Subjective Review of Systems This is a 68-year-old male with past medical history of Type 2 diabetes mellitus not on any medication. Patient came to ER with left foot pain with redness dorso-lateral aspect of left foot for 5 days which is 10/10 during walking , and relieved mildly on rest, localized and occasionally radiate to tip of the finger. Denies any trauma or insect bite. Patient went to urgent care and prescribed doxycycline which does not helps and wound became getting worse day by day. He is not taking any medicine for last 1 year. Patient currently denies any fever, SOB, chest pain, abdominal pain, dysuria or any other acute distress. PAST MEDICAL HISTORY: DM2. Surgical History: Denies all surgeries Family History: father bone cancer, grandmother unknown cancer Social History: Smoker: Non-Smoker Alcohol: occasional ETOH Use Drugs: Denies Drug Use Lives In: Home pcp: not selected Patient seen and evaluated in bedside. Patient pain significantly improved, swelling decreased in compared to admission. Podiatry consulted due to CT scan shows left foot abscess. NO Acute event overnight Objective vital signs Vital Sign Date Time Temp Pulse Resp B/P (MAP) Pulse Ox O2 Delivery O2 Flow Rate FiO2 12/18/24 17:00 98.6 87 18 142/95 (111) 96 98.6 12/18/24 08:00 Room Air* 0 21 Total Intake and Output 12/17/24 12/17/24 12/18/24 15:00 23:00 07:00 Intake Total 350 ml 629 ml 850 ml Output Total 650 ml Balance 350 ml 629 ml 200 ml medications Current Medications Medications Dose Ordered Sig/Ilir Route Start Time Stop Time Status Last Admin Dose Admin Sodium Chloride 1,000 ml @ 75 mls/hr [id number] IV 12/15/24 09:45 12/18/24 06:19 75 MLS/HR Acetaminophen 325 mg Q4HP PRN PO 12/15/24 09:45 Acetaminophen/ Hydrocodone Bitart 1 tab Q4HP PRN PO 12/15/24 09:45 12/18/24 21:31 1 TAB Zinc Sulfate 220 mg DAILY PO 12/15/24 10:00 12/18/24 11:03 220 MG Ascorbic Acid 500 mg BID PO 12/15/24 10:00 12/18/24 11:03 500 MG Enoxaparin Sodium 40 mg DAILY SC 12/15/24 10:00 12/18/24 11:04 40 MG Diagnostic Test (Pha) 1 strip ACHS 12/15/24 11:30 12/18/24 17:00 1 STRIP Dextrose 50 ml UD PRN IV 12/15/24 09:45 Insulin Human Lispro AC SC 12/15/24 14:45 12/18/24 17:39 3 UNITS Vancomycin HCl 0 ml @ 0 mls/hr UD IV 12/15/24 16:30 Insulin Human Lispro 4 units AC SC 12/16/24 17:00 12/18/24 17:00 4 UNITS Insulin Glargine 14 units HS SC 12/17/24 22:00 12/17/24 21:57 14 UNITS Vancomycin HCl 250 ml @ 200 mls/hr Q8H IV 12/18/24 11:00 12/18/24 18:17 200 MLS/HR Piperacillin Sod/ Tazobactam Sod 100 ml @ 25 mls/hr Q6H IV 12/18/24 20:00 12/18/24 21:32 25 MLS/HR Examination General Appearance: Alert, Oriented X3, Cooperative, No acute distress, mild distress HEENT: Atraumatic, PERRLA Respiratory: Clear to auscultation, Normal air movement Cardiovascular: Regular rate, Normal S1, Normal S2, No murmurs Abdominal: Normal bowel sounds, Soft, No tenderness, No hepatospenomegaly Extremities: No clubbing, No cyanosis, Mild erythema and edema localized dorsal aspect of left foot Neuro: Normal gait, Normal speech, Strength at 5/5 X4 ext laboratory and microbiology Laboratory Tests 12/18/24 05:37 12/17/24 05:22 Test 12/18/24 05:37 Range/Units Serum Glucose 238 H 74-106 mg/dL Microbiology Date/Time Source Procedure Growth Status 12/15/24 03:08 Blood Blood Culture - Preliminary NO GROWTH AFTER 72 HOURS OF INCUBATION. Resulted Problem List/Assessment/Plan Problem List/Assessment/Plan Left foot cellulitis Gram-positive or Gram-negative bacteria probably complicated with abscess Questionable abscess on lateral surface of left foot SIRS not sepsis X-ray left foot: There is no evidence of acute fracture or dislocation. Soft tissues are unremarkable. Blood culture, wound culture Intravenous fluid Pain management Completed CT left foot shows: No acute fracture or traumatic malalignment. No focal osteopenia or cortical destruction to suggest osteomyelitis. Loculated fluid collection of the plantar lateral hind foot at the level of the 5th MTP joint which could reflect small abscess (measuring up to 2.3 cm). Currently under empiric IV antibiotic (vancomycin and Zosyn, previously cefazolin) Podiatry consulted Mild Hyponatremia-improved Monitor Vitamin-D deficiency Replenished Type 2 diabetes mellitus with simple hyperglycemia - uncontrolled (hemoglobin A1c 12%) CMP glucose high Patient not on any home medicine On insulin therapy: Insulin sliding scale, Lantus bedtime, Lispro before meal Gave advice on healthy lifestyle habits Diet consistent with carbohydrates GI prophylaxis: Pantoprazole 40 mg p.o. daily DVT prophylaxis: Lovenox 40 mg sc daily Goals of care discussions. More than 23 minute spent with patient. Full code status. Case discussed with Dr. Golden Plan discussed with: Patient, Other My Orders My Orders Orders - LANCE PENALOZA RESIDENT Procedure Category Date Status Time Vancomycin PHA 12/18/24 In Process 1.25gm/250ml 11:00 Vancomycin Per PARMINDER 12/18/24 In Process Pharmacy Pro[facility] 09:00 Vancomycin,Trough LAB 12/19/24 Verified 08:00 Creatinine LAB 12/19/24 Verified 08:00 *Podiatry Consult CONS 12/18/24 Transmitted Musson([facility]) 13:01 Piperacillin-Tazob PHA 12/18/24 In Process 3.375gm (Zosyn 3.375g 20:00 Date of Service: Dec 18, 2024 Billing Provider: PEPITO GOLDEN MD Common Visit Codes: [id number] INP/OBS CARE(HIGH) LANCE PENALOZA RESIDENT Dec 18, 2024 21:46 MARTIN WINTERS RESIDENT Dec 19, 2024 07:05 PEPITO GOLDEN MD Dec 22, 2024 10:21
[2024-12-19] VITALS (10 sets, daily range): BP systolic 127–144; BP diastolic 70–106; PULSE 85–93; RESP 14–20; TEMP 95.5–98.7; O2SAT 95–98
[2024-12-19 07:21] LABS: Anion Gap 11 (5-15); Carbon Dioxide 24 mmol/L (20-31); Chloride 103 mmol/L (98-107); Potassium 3.9 mmol/L (3.5-5.1); Sodium 138 mmol/L (136-145)
[2024-12-19 07:22] LABS: Calcium 9.8 mg/dL (8.7-10.4)
[2024-12-19 07:27] LABS: BUN/Creatinine Ratio 13.5 (10.0-20.0); Blood Urea Nitrogen 10 mg/dL (9-23)
[2024-12-19 07:28] LABS: Hematocrit 41.9 % (41.0-53.0); Hemoglobin 15.1 g/dL (13.5-17.5); Mean Corpuscular Hemoglobin 32.4 pg (28.0-32.0); Mean Corpuscular Volume 89.8 fL (80.0-100.0); Nucleated Red Blood Cells % 0.1 %
[2024-12-19 07:32] LABS: Glucose 227 mg/dL (74-106)
[2024-12-19] MEDS: INSULIN LISPRO (HUMAN) 100 UNITS/ML ML SC SCH (08:30)
--- NOTE | 2024-12-19 13:34 | DVHCONRES ---
Date Seen: Dec 19, 2024 Reason for Consultation Left foot area of fluctuance History of Present Illness This is a 68-year-old male with past medical history of Type 2 diabetes mellitus not on any medication. Patient came to ER with left foot pain with redness dorso-lateral aspect of left foot for 5 days which is 10/10 during walking , and relieved mildly on rest, localized and occasionally radiate to tip of the finger. Denies any trauma or insect bite. Patient went to urgent care and prescribed doxycycline which does not helps and wound became getting worse day by day. He is not taking any medicine for last 1 year. Patient currently denies any fever, SOB, chest pain, abdominal pain, dysuria or any other acute distress. Past Medical History See H&P Past Surgical History See H&P Family History: Parents Allergies: Coded Allergies: NO KNOWN ALLERGIES (Unverified , 09/03/18) Current Medications Current Medications Medications (Trade) Dose Ordered Sig/Ilir Route PRN Reason Start Time Stop Time Status Last Admin Piperacillin Sod/ Tazobactam Sod 100 ml @ 25 mls/hr Q6H IV 12/18/24 20:00 12/19/24 10:52 Insulin Human Lispro (HumaLOG) 6 units AC SC 12/19/24 08:30 12/19/24 08:30 Vital Signs Vital Signs Date Time Temp Pulse Resp B/P (MAP) Pulse Ox O2 Delivery O2 Flow Rate FiO2 12/19/24 09:00 98.1 89 20 140/70 (93) 97 98.1 12/18/24 20:00 Room Air* 0 21 Physical Exam Dermatological: Skin is dry with mild erythema and some maceration around the wound site No gross deformities noted Mild non-pitting edema present bilaterally Left lateral area of fluctuance a cellulitis Vascular: Dorsalis pedis and posterior tibial pulses are 1+ bilaterally Capillary refill is under 2 seconds Skin temperature is warm bilaterally Neurologic: Protective sensation is absent on the plantar forefoot bilaterally Monofilament testing reveals decreased sensation in multiple plantar sites Musculoskeletal: Range of motion at the ankle and MTP joints is within normal limits. Strength is 5/5 in all tested muscle groups. Gait is antalgic due to offloading of the affected limb. Labs/Diagnostic Data Labs Test 12/19/24 10:44 12/19/24 06:26 12/18/24 05:37 12/16/24 05:20 Range/Units POC Glucose 200 H 70-106 mg/dl White Blood Count 5.1 4.4-10.8 10^3/uL Red Blood Count 4.67 4.5-5.90 10^6/uL Hemoglobin 15.1 13.5-17.5 g/dL Hematocrit 41.9 41.0-53.0 % Mean Corpuscular Volume 89.8 80.0-100.0 fL Mean Corpuscular Hemoglobin 32.4 H 28.0-32.0 pg Mean Corpuscular Hemoglobin Concent 36.1 H 32.0-36.0 g/dL Red Cell Distribution Width 12.6 11.8-14.3 % Platelet Count 273 140-450 10^3/uL Mean Platelet Volume 7.2 6.9-10.8 fL Neutrophils (%) (Auto) 50.7 37.0-80.0 % Lymphocytes (%) (Auto) 32.2 10.0-50.0 % Monocytes (%) (Auto) 13.6 H 0.0-12.0 % Eosinophils (%) (Auto) 2.6 0.0-7.0 % Basophils (%) (Auto) 0.9 0.0-2.0 % Neutrophils # (Auto) 2.6 1.6-8.6 10 ^3/uL Lymphocytes # (Auto) 1.6 0.4-5.4 10 ^3/uL Monocytes # (Auto) 0.7 0-1.3 10 ^3/uL Eosinophils # (Auto) 0.1 0-0.8 10 ^3/uL Basophils # (Auto) 0 0-0.2 10 ^3/uL Nucleated Red Blood Cells 0.1 % Sodium Level 138 136-145 mmol/L Potassium Level 3.9 3.5-5.1 mmol/L Chloride Level 103 98-107 mmol/L Carbon Dioxide Level 24 20-31 mmol/L Anion Gap 11 5-15 Blood Urea Nitrogen 10 9-23 mg/dL Creatinine 0.74 0.700-1.30 mg/dL Glomerular Filtration Rate Calc 106 >90 mL/min BUN/Creatinine Ratio 13.5 10.0-20.0 Serum Glucose 227 H 74-106 mg/dL Calcium Level 9.8 8.7-10.4 mg/dL Vancomycin Level Trough 19.0 H 5-10 ug/mL Total Bilirubin 0.6 0.2-1.0 mg/dL Aspartate Amino Transferase (AST) 17 13-40 U/L Alanine Aminotransferase (ALT) 21 7-40 U/L Alkaline Phosphatase 75 46-116 U/L Total Protein 6.7 5.7-8.2 g/dL Albumin 3.9 3.2-4.8 g/dL Hemoglobin A1c 12.0 H <5.7 % A1C Triglycerides Level 150 H < 150 mg/dL Cholesterol Level 133 < 200 mg/dL LDL Cholesterol 88 < 100 mg/dL HDL Cholesterol 26 L 40-59 mg/dL Vitamin B12 Level 1197 H 211-911 pg/mL Vitamin D 25-Hydroxy 21.4 L 30.0-100 ng/mL Thyroid Stimulating Hormone (TSH) 1.43 0.55-4.78 uIU/mL Test 12/15/24 03:05 Range/Units Lactic Acid Level 1.1 0.4-2.0 mmol/L Microbiology Date/Time Source Procedure Growth Status 12/15/24 03:08 Blood Blood Culture - Preliminary NO GROWTH AFTER 72 HOURS OF INCUBATION. Resulted Problems(with codes): (1) Upper respiratory tract infection (2) Cellulitis of left foot (3) Hyperglycemia Plan/Recommendation ASSESSMENT: Patient is a 58 year old seen on the floor for a worsening abscess PLAN: - The patients chart was reviewed, clinical findings were discussed with the patient, the etiologies of the conditions were discussed in detail, and a treatment plan was agreed to at this time, with both oral and written instructio ns provided. - reviewed advanced imaging - discussed plan is to perform an incision and drainage - patient has been NPO since midnight - take him to the OR today - we will get cultures in the OR - can weightbear as tolerated in postoperative shoe All questions were answered and concerns addressed to the patient's satisfaction. The patient was given the phone number to the clinic and was told how to make contact with the clinic should any concerns or questions arise. Patient understands that if any questions or concerns arise prior to the next appointment, we should be contacted immediately. FOLLOW-UP: Continue to follow while inpatient Plan discussed with: Patient Visit Coding Podiatry Date of Service if different f: Dec 19, 2024 Billing Provider: HASMUKH PITT DPM Podiatry Common Visit Codes: CONSULT ONLY Podiatry Consult Codes: 35189-SG/OBS CONSLTJ NEW/EST HI 80 HASMUKH PITT Dec 19, 2024 13:34
[2024-12-19] MEDS ORDERED: fentaNYL CITRATE 100 MCG/2 ML VL ONE (13:48)
[2024-12-19] MEDS ORDERED: MIDAZOLAM HCL 2MG/2ML 2ml VIAL (1mg/ml) ONE (13:48)
[2024-12-19] MEDS ORDERED: PROPOFOL 10 MG/ML 20 ML IV ONE (13:48)
[2024-12-19] MEDS ORDERED: METOCLOPRAMIDE HCL 5MG/ml INJ 2ml VIAL ONE (13:51)
[2024-12-19] MEDS ORDERED: ONDANSETRON HCL 4 MG/2 ML VIAL ONE (13:51)
[2024-12-19] MEDS: BUPIVACAINE 0.5% P/F INJ 10 ML VIAL ONE (13:55)
--- NOTE | 2024-12-19 14:01 | DVHOP2 ---
Operative Report - 2 Report Details Date: 12/19/24 Preop Diagnosis: 1. Left foot abscess 2. Left foot cellulitis 3. Left foot diabetic ulcer Postop Diagnosis: Same as preop Surgeon: Hasmukh Pitt MD Anesthesiologist: See anesthesia Anesthesia: Mac Consent: The patient was informed of the risks and benefits of the procedure. These include but are not limited to complications of anesthesia, postoperative infection, incomplete relief of symptoms, recurrence of symptoms, damage to blood vessels, nerves and tendons, deep venous thrombosis, pulmonary embolism and possible need for repeat surgery in the future. Complications: None Estimated Blood Loss: Minimal Fluids: See anesthesia Findings: Consistent with diagnosis Indications for Surgery: Worsening left foot Name of Procedure Performed 1. Left foot I&D (88906) Procedure Details Procedure Details: PRE-PROCEDURE INFORMATION: In the pre-op holding area, the extremity to be operated on was clearly marked and the patient verified correct laterality of the marking. The patient was transferred to the OR table and placed in a supine position. A timeout was performed in which identification of the correct patient, procedure, location, and materials was done. The left foot and leg were prepped and draped in normal sterile fashion. DESCRIPTION OF PROCEDURE: Attention was directed to the left where area of fluctuance was noted. An incision was made over this area and was deepened through blunt dissection. The incision was deepened to the level of abscess and bone. Care was taken to the dissection to avoid any neurovascular and tendinous structures. The incision was deepened to the abscess appeared to be purulent fluid consistent with pus. Using a ronger, all necrotic tissue was removed. After the abscess was drained, the area was irrigated with 3 L normal saline using cysto tubing. Deep cultures were then obtained from the wound. The area was then inspected and any areas of tracking, especially along the tendons were also drained. The wound was packed with Betadine-soaked gauze and we will need to be closed at a later date. POSTOPERATIVE INFORMATION: The patient tolerated the above noted procedure and anesthesia well and was transferred to the PACU with vital signs stable, and vascular status intact with capillary refill intact to all digits. Deep cultures were taken. Patient will return in the future for closure at this point. Continue to allow for the wound to drain. Condition Good Disposition Still a Patient Visit Coding Podiatry Date of Service if different f: Dec 19, 2024 Billing Provider: HASMUKH PITT DPM Podiatry Common Visit Codes: PROCEDURE ONLY [id number] FOOT BONE LESION: 13833-SK FOOT BONE LESN (LEFT) HASMUKH PITT DPM Dec 19, 2024 14:01
[2024-12-19] MEDS ORDERED: ONDANSETRON HCL 4 MG/2 ML VIAL IV PRN (14:15)
[2024-12-19] MEDS ORDERED: HYDROmorphone HCL 2 MG/ML VL/or syr IV PRN (14:15)
--- NOTE | 2024-12-19 19:58 | DVHPNRES ---
Progress Note Date Seen: Dec 19, 2024 Resident Creating Document: LANCE PENALOZA RESIDENT Medical Necessity Reason Pt with a Central, PICC or Fol: No Medical Necessity Reason This is a 68-year-old male with past medical history of Type 2 diabetes mellitus not on any medication. Patient came to ER with left foot pain with redness dorso-lateral aspect of left foot for 5 days which is 10/10 during walking , and relieved mildly on rest, localized and occasionally radiate to tip of the finger. Denies any trauma or insect bite. Patient went to urgent care and prescribed doxycycline which does not helps and wound became getting worse day by day. He is not taking any medicine for last 1 year. Patient currently denies any fever, SOB, chest pain, abdominal pain, dysuria or any other acute distress. PAST MEDICAL HISTORY: DM2. Surgical History: Denies all surgeries Family History: father bone cancer, grandmother unknown cancer Social History: Smoker: Non-Smoker Alcohol: occasional ETOH Use Drugs: Denies Drug Use Lives In: Home pcp: not selected Patient seen and evaluated in bedside. I and D done today by Podiatry and culture sent. No acute event overnight. Objective vital signs Vital Sign Date Time Temp Pulse Resp B/P (MAP) Pulse Ox O2 Delivery O2 Flow Rate FiO2 12/19/24 16:44 97.9 86 17 144/82 (102) 98 97.9 12/19/24 14:35 Room Air 96 12/19/24 14:35 0 Total Intake and Output 12/18/24 12/18/24 12/19/24 15:00 23:00 07:00 Intake Total 350 ml 420 ml 500 ml Balance 350 ml 420 ml 500 ml medications Current Medications Medications Dose Ordered Sig/Ilir Route Start Time Stop Time Status Last Admin Dose Admin Sodium Chloride 1,000 ml @ 75 mls/hr [id number] IV 12/15/24 09:45 12/19/24 07:06 75 MLS/HR Acetaminophen 325 mg Q4HP PRN PO 12/15/24 09:45 Acetaminophen/ Hydrocodone Bitart 1 tab Q4HP PRN PO 12/15/24 09:45 12/18/24 21:31 1 TAB Zinc Sulfate 220 mg DAILY PO 12/15/24 10:00 12/19/24 10:46 220 MG Ascorbic Acid 500 mg BID PO 12/15/24 10:00 12/19/24 10:46 500 MG Enoxaparin Sodium 40 mg DAILY SC 12/15/24 10:00 12/19/24 10:50 40 MG Diagnostic Test (Pha) 1 strip ACHS 12/15/24 11:30 12/19/24 17:00 1 STRIP Dextrose 50 ml UD PRN IV 12/15/24 09:45 Insulin Human Lispro AC SC 12/15/24 14:45 12/19/24 17:00 1 UNITS Vancomycin HCl 0 ml @ 0 mls/hr UD IV 12/15/24 16:30 Insulin Glargine 14 units HS SC 12/17/24 22:00 12/18/24 23:53 14 UNITS Vancomycin HCl 250 ml @ 200 mls/hr Q8H IV 12/18/24 11:00 12/19/24 18:10 200 MLS/HR Piperacillin Sod/ Tazobactam Sod 100 ml @ 25 mls/hr Q6H IV 12/18/24 20:00 12/19/24 10:52 25 MLS/HR Insulin Human Lispro 6 units AC AR 12/19/24 08:30 12/19/24 17:00 6 UNITS Examination General Appearance: Alert, Oriented X3, Cooperative, No acute distress, mild distress HEENT: Atraumatic, PERRLA Respiratory: Clear to auscultation, Normal air movement Cardiovascular: Regular rate, Normal S1, Normal S2, No murmurs Abdominal: Normal bowel sounds, Soft, No tenderness, No hepatospenomegaly Extremities: No clubbing, No cyanosis, Mild erythema and edema localized dorsal aspect of left foot Neuro: Normal gait, Normal speech, Strength at 5/5 X4 ext laboratory and microbiology Laboratory Tests 12/19/24 06:26 Test 12/19/24 06:26 Range/Units Serum Glucose 227 H 74-106 mg/dL Microbiology Date/Time Source Procedure Growth Status 12/15/24 03:08 Blood Blood Culture - Preliminary NO GROWTH AFTER 72 HOURS OF INCUBATION. Resulted Problem List/Assessment/Plan Problem List/Assessment/Plan Left foot cellulitis Gram-positive or Gram-negative bacteria Left foot abscess - s/p I&D SIRS not sepsis Left foot diabetic ulcer X-ray left foot: There is no evidence of acute fracture or dislocation. Soft tissues are unremarkable. In ER patient received vanco and cefazolin CT left foot shows No acute fracture or traumatic malalignment. No focal osteopenia or cortical destruction to suggest osteomyelitis. Continue Zosyn and vancomycin Blood culture-no growth I & D done by Podiatric today and culture sent. Blood cultures x2 no growth Intravenous fluid Pain management Abscess on lateral surface of left foot CT left foot shows : Loculated fluid collection of the plantar lateral hind foot at the level of the 5th MTP joint which could reflect small abscess (measuring up to 2.3 cm). Continue IV antibiotic I & D done by Podiatric today and culture sent. Hyponatremia No signs symptoms of hyponatremia BMP Vitamin-D deficiency Vitamin-D level 21.4 Vitamin-D 60981 units p.o. Q weekly Type 2 diabetes mellitus with hyperglycemia CMP glucose high Patient not on any home medicine Avoid sugar and sugar containing food Hemoglobin A1c 12.0 Insulin sliding scale Lantus bedtime Lispro before meal Monitor blood sugars Diet :carbohydrate consistent GI prophylaxis: Pantoprazole 40 mg p.o. daily DVT prophylaxis: Lovenox 40 mg sc daily Goals of care discussions. More than 21 minute spent with patient. Full code status. Case discussed with Dr. Golden Plan discussed with: Patient, Other (Nurse) My Orders My Orders Orders - LANCE PENALOZA RESIDENT Procedure Category Date Status Time Insulin Lispro PHA 12/19/24 In Process (Human) (Humalog) 08:30 Vancomycin Per PARMINDER 12/19/24 In Process Pharmacy Protoc 12:30 Creatinine LAB 12/20/24 Verified 10:00 Vancomycin,Trough LAB 12/20/24 Verified 10:00 Dietary Evaluation Review Comments: CCHO-60 diet + Carlos BID Expected Outcomes/Goals: controlled DM, healed wounds, gradual wt loss Date of Service: Dec 19, 2024 Billing Provider: PEPITO GOLDEN MD Common Visit Codes: [id number] INP/OBS CARE(HIGH) LANCE PENALOZA RESIDENT Dec 19, 2024 19:58 MARTIN WINTERS RESIDENT Dec 22, 2024 09:16 PEPITO GOLDEN MD Dec 22, 2024 10:35
[2024-12-20 01:00] VITALS: BP 128/76; PULSE 85; RESP 16; TEMP 98.7; O2SAT 97
[2024-12-20 05:00] VITALS: BP 119/70; PULSE 76; RESP 16; TEMP 98.7; O2SAT 98
[2024-12-20 06:35] LABS: Alanine Aminotransferase 26 U/L (7-40); Alkaline Phosphatase 78 U/L (46-116); Anion Gap 8 (5-15); BUN/Creatinine Ratio 12.8 (10.0-20.0); Blood Urea Nitrogen 10 mg/dL (9-23); Calcium 9.8 mg/dL (8.7-10.4); Carbon Dioxide 28 mmol/L (20-31); Chloride 102 mmol/L (98-107); Potassium 3.8 mmol/L (3.5-5.1); Sodium 138 mmol/L (136-145); Total Protein 6.8 g/dL (5.7-8.2)
[2024-12-20 06:36] LABS: Albumin 3.8 g/dL (3.2-4.8); Bilirubin, Total 0.7 mg/dL (0.2-1.0)
[2024-12-20 06:44] LABS: Glucose 221 mg/dL (74-106)
[2024-12-20 08:35] VITALS: BP 126/80; PULSE 93; RESP 18; TEMP 99; O2SAT 94
[2024-12-20 13:04] VITALS: BP 120/72; PULSE 80; RESP 18; TEMP 98.1; O2SAT 95
--- NOTE | 2024-12-20 17:01 | DVHPNRES ---
Progress Note Date Seen: Dec 20, 2024 Resident Creating Document: LANCE PENALOZA RESIDENT Medical Necessity Reason Pt with a Central, PICC or Fol: No Subjective Review of Systems This is a 68-year-old male with past medical history of Type 2 diabetes mellitus not on any medication. Patient came to ER with left foot pain with redness dorso-lateral aspect of left foot for 5 days which is 10/10 during walking , and relieved mildly on rest, localized and occasionally radiate to tip of the finger. Denies any trauma or insect bite. Patient went to urgent care and prescribed doxycycline which does not helps and wound became getting worse day by day. He is not taking any medicine for last 1 year. Patient currently denies any fever, SOB, chest pain, abdominal pain, dysuria or any other acute distress. PAST MEDICAL HISTORY: DM2. Surgical History: Denies all surgeries Family History: father bone cancer, grandmother unknown cancer Social History: Smoker: Non-Smoker Alcohol: occasional ETOH Use Drugs: Denies Drug Use Lives In: Home pcp: not selected Patient seen and evaluated by today. Patient denies any acute symptoms. 2nd day after I and D done. No discharge or bleeding noted. Waiting for wound culture. Objective vital signs Vital Sign Date Time Temp Pulse Resp B/P (MAP) Pulse Ox O2 Delivery O2 Flow Rate FiO2 12/20/24 13:04 98.1 80 18 120/72 (88) 95 98.1 12/20/24 08:00 Room Air* 0 21 Total Intake and Output 12/19/24 12/19/24 12/20/24 15:00 23:00 07:00 Intake Total 100 ml 480 ml 240 ml Output Total 500 ml 0 ml Balance 100 ml -20 ml 240 ml medications Current Medications Medications Dose Ordered Sig/Ilir Route Start Time Stop Time Status Last Admin Dose Admin Sodium Chloride 1,000 ml @ 75 mls/hr [id number] IV 12/15/24 09:45 12/20/24 09:45 75 MLS/HR Acetaminophen 325 mg Q4HP PRN PO 12/15/24 09:45 Acetaminophen/ Hydrocodone Bitart 1 tab Q4HP PRN PO 12/15/24 09:45 12/20/24 09:18 1 TAB Zinc Sulfate 220 mg DAILY PO 12/15/24 10:00 12/20/24 08:48 220 MG Ascorbic Acid 500 mg BID PO 12/15/24 10:00 12/20/24 08:48 500 MG Enoxaparin Sodium 40 mg DAILY SC 12/15/24 10:00 12/20/24 09:02 40 MG Diagnostic Test (Pha) 1 strip ACHS 12/15/24 11:30 12/20/24 11:30 1 STRIP Dextrose 50 ml UD PRN IV 12/15/24 09:45 Insulin Human Lispro AC SC 12/15/24 14:45 12/20/24 11:30 1 UNITS Vancomycin HCl 0 ml @ 0 mls/hr UD IV 12/15/24 16:30 Insulin Glargine 14 units HS SC 12/17/24 22:00 12/19/24 23:57 14 UNITS Vancomycin HCl 250 ml @ 200 mls/hr Q8H IV 12/18/24 11:00 12/20/24 13:03 200 MLS/HR Piperacillin Sod/ Tazobactam Sod 100 ml @ 25 mls/hr Q6H IV 12/18/24 20:00 12/20/24 09:00 25 MLS/HR Insulin Human Lispro 6 units AC SC 12/19/24 08:30 12/20/24 11:30 6 UNITS Examination General Appearance: Alert, Oriented X3, Cooperative, No acute distress, mild distress HEENT: Atraumatic, PERRLA Respiratory: Clear to auscultation, Normal air movement Cardiovascular: Regular rate, Normal S1, Normal S2, No murmurs Abdominal: Normal bowel sounds, Soft, No tenderness, No hepatospenomegaly Extremities: No clubbing, No cyanosis, no bleeding or oozing noted I& D site Neuro: Normal gait, Normal speech, Strength at 5/5 X4 ext laboratory and microbiology Laboratory Tests 12/20/24 10:10 12/20/24 05:28 12/19/24 06:26 Test 12/20/24 05:28 Range/Units Serum Glucose 221 H 74-106 mg/dL Microbiology Date/Time Source Procedure Growth Status 12/19/24 14:32 Foot Left Gram Stain Pending Resulted 12/19/24 14:32 Foot Left Anaerobic Culture Pending Resulted 12/19/24 14:32 Foot Left Aerobic Culture - Preliminary Resulted 12/15/24 03:08 Blood Blood Culture - Final NO GROWTH AFTER 5 DAYS OF INCUBATION. Complete Problem List/Assessment/Plan Problem List/Assessment/Plan Left foot cellulitis Gram-positive or Gram-negative bacteria Left foot abscess - s/p I&D SIRS not sepsis Left foot diabetic ulcer X-ray left foot: There is no evidence of acute fracture or dislocation. Soft tissues are unremarkable. In ER patient received vanco and cefazolin CT left foot shows No acute fracture or traumatic malalignment. No focal osteopenia or cortical destruction to suggest osteomyelitis. Continue Zosyn and vancomycin Blood culture-no growth Podiatry on board: Completed I and D left foot abscess on 12/19/2024, pending culture Blood cultures x2 no growth Intravenous fluid Pain management Abscess on lateral surface of left foot CT left foot shows : Loculated fluid collection of the plantar lateral hind foot at the level of the 5th MTP joint which could reflect small abscess (measuring up to 2.3 cm). Continue IV antibiotic I & D done by Podiatric today and culture sent. Hyponatremia No signs symptoms of hyponatremia BMP Vitamin-D deficiency Vitamin-D level 21.4 Vitamin-D 05638 units p.o. Q weekly Type 2 diabetes mellitus with hyperglycemia CMP glucose high Patient not on any home medicine Avoid sugar and sugar containing food Hemoglobin A1c 12.0 Insulin sliding scale Lantus bedtime Lispro before meal Monitor blood sugars Diet :carbohydrate consistent GI prophylaxis: Pantoprazole 40 mg p.o. daily DVT prophylaxis: Lovenox 40 mg sc daily Goals of care discussions. More than 21 minute spent with patient. Full code status. Case discussed with Dr. Golden Plan discussed with: Patient, Other (Nurse) Dietary Evaluation Review Comments: CCHO-60 diet + Carlso BID Expected Outcomes/Goals: controlled DM, healed wounds, gradual wt loss Date of Service: Dec 20, 2024 Billing Provider: PEPITO GOLDEN MD Common Visit Codes: [id number] INP/OBS CARE(HIGH) LANCE PENALOZA RESIDENT Dec 20, 2024 17:01 MARTIN WINTERS RESIDENT Dec 22, 2024 09:17 PEPITO GOLDEN MD Dec 22, 2024 10:47
[2024-12-20 17:40] VITALS: BP 126/84; PULSE 73; RESP 20; TEMP 98.7; O2SAT 97
[2024-12-20 21:00] VITALS: BP 126/86; PULSE 82; RESP 18; TEMP 98; O2SAT 97
[2024-12-20] MEDS: VANCOMYCIN 1.25GM/250ML 250 ML IV SCH (21:57)
[2024-12-21] VITALS (7 sets, daily range): BP systolic 122–145; BP diastolic 75–84; PULSE 78–85; RESP 17–21; TEMP 97.5–98.8; O2SAT 94–97
[2024-12-21] MEDS: PIPERACILLIN-TAZOB 3.375GM 100 ML IV SCH (00:01)
[2024-12-21 03:32] LABS: Urine Protein, UAD Negative (Negative)
[2024-12-21 06:37] LABS: Hematocrit 40.7 % (41.0-53.0); Hemoglobin 14.7 g/dL (13.5-17.5); Mean Corpuscular Hemoglobin 32.7 pg (28.0-32.0); Mean Corpuscular Volume 90.3 fL (80.0-100.0); Nucleated Red Blood Cells % 0.1 %
[2024-12-21 06:54] LABS: Anion Gap 11 (5-15); Carbon Dioxide 26 mmol/L (20-31); Chloride 102 mmol/L (98-107); Potassium 3.8 mmol/L (3.5-5.1); Sodium 139 mmol/L (136-145)
[2024-12-21 06:55] LABS: Calcium 9.9 mg/dL (8.7-10.4)
[2024-12-21 07:00] LABS: Glucose 182 mg/dL (74-106)
[2024-12-21 07:01] LABS: BUN/Creatinine Ratio 12.0 (10.0-20.0); Blood Urea Nitrogen 10 mg/dL (9-23)
--- NOTE | 2024-12-21 13:38 | DVHPN2 ---
Subjective Left foot pain Changes from previous H/P or p: Changes Eyes: No Pain, No Vision change, No Conjunctivae inflammation, No Eyelid inflammation, No Other, No Redness ENT: No Ear pain, No Ear discharge, No Nose pain, No Nose discharge, No Nose congestion, No Mouth pain, No Mouth swelling, No Throat pain, No Throat swelling, No Other Cardiovascular: No Chest Pain, No Palpitations, No Orthopnea, No Paroxysmal Noc. Dyspnea, No Edema, No Lt Headedness, No Other Respiratory: No Cough, No Dry, No Shortness of breath, No SOB with excertion, No Wheezing, No Hemoptysis, No Pleuritic Pain, No Sputum, No Other Gastrointestinal: No Nausea, No Vomiting, No Abdominal Pain, No Diarrhea, No Constipation, No Melena, No Hematochezia, No Other Genitourinary: No Dysuria, No Frequency, No Incontinence, No Hematuria, No Retention, No Other Musculoskeletal: No other, No neck pain, No shoulder pain, No arm pain, No back pain, No hand pain, No leg pain; foot pain (Erythema and local swelling dorsolateral aspect of left foot) Skin: No Rash, No Lesions, No Jaundice, No Bruising, No Other Objective Vitals Vital Signs Date Time Temp Pulse Resp B/P (MAP) Pulse Ox O2 Delivery O2 Flow Rate FiO2 12/21/24 12:36 98.2 85 21 128/78 (95) 96 98.2 12/20/24 20:00 Room Air* 0 21 Intake/Output Intake and Output 12/21/24 07:00 Intake Total 4840 ml Output Total 1205 ml Balance 3635 ml Intake Oral 3240 ml IV Total 1600 ml Output Urine Total 1205 ml # Voids 7 General Appearance: Alert, Oriented X3, Cooperative, No acute distress Lungs: Clear to auscultation, Normal air movement Abdomen: Normal bowel sounds, Soft, No tenderness Extremities: No edema Medications Current Medications Medications Dose Ordered Sig/Ilir Route Start Time Stop Time Status Last Admin Dose Admin Sodium Chloride 1,000 ml @ 75 mls/hr [id number] IV 12/15/24 09:45 12/21/24 00:07 75 MLS/HR Acetaminophen 325 mg Q4HP PRN PO 12/15/24 09:45 Acetaminophen/ Hydrocodone Bitart 1 tab Q4HP PRN PO 12/15/24 09:45 12/21/24 12:38 1 TAB Zinc Sulfate 220 mg DAILY PO 12/15/24 10:00 12/21/24 08:27 220 MG Ascorbic Acid 500 mg BID PO 12/15/24 10:00 12/21/24 08:26 500 MG Enoxaparin Sodium 40 mg DAILY SC 12/15/24 10:00 12/21/24 08:27 40 MG Diagnostic Test (Pha) 1 strip ACHS 12/15/24 11:30 12/21/24 11:30 1 STRIP Dextrose 50 ml UD PRN IV 12/15/24 09:45 Insulin Human Lispro AC SC 12/15/24 14:45 12/21/24 12:50 1 UNITS Vancomycin HCl 0 ml @ 0 mls/hr UD IV 12/15/24 16:30 Insulin Glargine 14 units HS NC 12/17/24 22:00 12/20/24 21:52 14 UNITS Insulin Human Lispro 6 units AC NC 12/19/24 08:30 12/21/24 12:50 6 UNITS Vancomycin HCl 250 ml @ 200 mls/hr Q8H IV 12/20/24 22:00 12/21/24 06:15 200 MLS/HR Piperacillin Sod/ Tazobactam Sod 100 ml @ 25 mls/hr Q6H IV 12/21/24 00:00 12/21/24 12:39 25 MLS/HR Laboratory Results Laboratory Tests 12/21/24 05:20 Chemistry Test 12/21/24 05:20 Calcium Level 9.9 mg/dL (8.7-10.4) Urinalysis Test 12/21/24 02:05 Urine Color Light-yellow (Yellow) Urine Clarity Clear (Clear) Urine pH 6.0 (5.0-9.0) Urine Specific [place] 1.013 (1.001-1.035) Urine Protein Negative (Negative) Urine Ketones Trace (Negative) Urine Blood Negative /uL (Negative) Urine Nitrite Negative (Negative) Urine Bilirubin Negative (Negative) Urine Urobilinogen 2 mg/dL (Negative) H Urine Leukocyte Esterase Negative /uL (Negative) Urine RBC <1 /hpf (0 - 3) Urine Microscopic WBC 1 /HPF (0-3) Urine Squamous Epithelial Cells Few /hpf (<5) Urine Bacteria Few /hpf (None Seen) H Urine Glucose Normal mg/dL (Normal) Microbiology Microbiology Date/Time Source Procedure Growth Status 12/19/24 14:32 Foot Left Gram Stain Pending Resulted 12/19/24 14:32 Foot Left Anaerobic Culture Pending Resulted 12/19/24 14:32 Foot Left Aerobic Culture - Preliminary Resulted 12/15/24 03:08 Blood Blood Culture - Final NO GROWTH AFTER 5 DAYS OF INCUBATION. Complete Assessment/Plan Assessment/Plan Left foot cellulitis Left foot abscess s/p surgery DM type 2 PLAN: [facility] plans to close wound in 1-2 days Insulin Monitor closely Plan discussed with: Patient Date of Service: Dec 21, 2024 Billing Provider: MAIDA MINOR MD Common Visit Codes: [id number] INP/OBS CARE(HIGH) MAIDA MINOR MD Dec 21, 2024 13:38
[2024-12-21] MEDS ORDERED: LIDOCAINE 1% HCL (LOCAL ANESTH.) INJ 20ML MDV IJ ONE (13:52)
[2024-12-22] VITALS (7 sets, daily range): BP systolic 116–141; BP diastolic 76–102; PULSE 73–84; RESP 17–20; TEMP 96.5–98; O2SAT 96–98
[2024-12-22] MEDS: PIPERACILLIN-TAZOB 3.375GM 100 ML IV SCH (03:11)
--- NOTE | 2024-12-22 10:18 | MEDREC ---
COUNTS INCLUDE 234 BEDS AT THE [facility] Intervention Section I COUNTS INCLUDE 234 BEDS AT THE [facility] Intervention: Deescalate AB based on CS (PLEASE CONSIDER DE-ESCALATION BASED ON CULTURE RESULTS AND SUSCEPTIBILITIES) LUIS LYNCH PHARMACIST Dec 22, 2024 10:17
--- NOTE | 2024-12-22 15:55 | DVHPNRES ---
Progress Note Date Seen: Dec 22, 2024 Resident Creating Document: LANCE PENALOZA RESIDENT Medical Necessity Reason Pt with a Central, PICC or Fol: No Subjective Review of Systems This is a 68-year-old male with past medical history of Type 2 diabetes mellitus not on any medication. Patient came to ER with left foot pain with redness dorso-lateral aspect of left foot for 5 days which is 10/10 during walking , and relieved mildly on rest, localized and occasionally radiate to tip of the finger. Denies any trauma or insect bite. Patient went to urgent care and prescribed doxycycline which does not helps and wound became getting worse day by day. He is not taking any medicine for last 1 year. Patient currently denies any fever, SOB, chest pain, abdominal pain, dysuria or any other acute distress. PAST MEDICAL HISTORY: DM2. Surgical History: Denies all surgeries Family History: father bone cancer, grandmother unknown cancer Social History: Smoker: Non-Smoker Alcohol: occasional ETOH Use Drugs: Denies Drug Use Lives In: Home pcp: not selected Patient seen and evaluated in bedside today. Patient left foot covered dry bandage. No acute event overnight. I & D closure scheduled for tomorrow by Podiatry. Objective vital signs Vital Sign Date Time Temp Pulse Resp B/P (MAP) Pulse Ox O2 Delivery O2 Flow Rate FiO2 12/22/24 13:00 96.5 84 20 116/82 (93) 97 96.5 12/21/24 20:00 Room Air* 0 21 Total Intake and Output 12/21/24 12/21/24 12/22/24 15:00 23:00 07:00 Intake Total 1850 ml 1000 ml Output Total 3000 ml Balance 1850 ml -2000 ml medications Current Medications Medications Dose Ordered Sig/Ilir Route Start Time Stop Time Status Last Admin Dose Admin Acetaminophen 325 mg Q4HP PRN PO 12/15/24 09:45 Acetaminophen/ Hydrocodone Bitart 1 tab Q4HP PRN PO 12/15/24 09:45 12/22/24 06:28 1 TAB Zinc Sulfate 220 mg DAILY PO 12/15/24 10:00 12/22/24 12:05 220 MG Ascorbic Acid 500 mg BID PO 12/15/24 10:00 12/22/24 12:05 500 MG Enoxaparin Sodium 40 mg DAILY SC 12/15/24 10:00 12/22/24 12:05 40 MG Diagnostic Test (Pha) 1 strip ACHS 12/15/24 11:30 12/22/24 11:30 1 STRIP Dextrose 50 ml UD PRN IV 12/15/24 09:45 Insulin Human Lispro AC SC 12/15/24 14:45 12/22/24 06:14 1 UNITS Vancomycin HCl 0 ml @ 0 mls/hr UD IV 12/15/24 16:30 Insulin Glargine 14 units HS SC 12/17/24 22:00 12/21/24 21:25 14 UNITS Insulin Human Lispro 6 units AC DC 12/19/24 08:30 12/22/24 11:30 6 UNITS Vancomycin HCl 250 ml @ 200 mls/hr Q8H IV 12/20/24 22:00 12/22/24 15:03 200 MLS/HR Piperacillin Sod/ Tazobactam Sod 100 ml @ 25 mls/hr Q6H IV 12/22/24 03:30 12/22/24 12:06 25 MLS/HR Examination General Appearance: Alert, Oriented X3, Cooperative, No acute distress HEENT: Atraumatic, PERRLA Respiratory: Clear to auscultation, Normal air movement Cardiovascular: Regular rate, Normal S1, Normal S2, No murmurs Abdominal: Normal bowel sounds, Soft, No tenderness, No hepatospenomegaly Extremities: No clubbing, No cyanosis, left foot covered with dry bandage Neuro: Normal gait, Normal speech, Strength at 5/5 X4 ext laboratory and microbiology Laboratory Tests 12/21/24 05:20 Test 12/21/24 05:20 Range/Units Serum Glucose 182 H 74-106 mg/dL Microbiology Date/Time Source Procedure Growth Status 12/19/24 14:32 Foot Left Gram Stain - Final Resulted 12/19/24 14:32 Foot Left Anaerobic Culture - Preliminary Resulted 12/19/24 14:32 Aerobic Culture - Final Staphylococcus aureus Resulted 12/15/24 03:08 Blood Blood Culture - Final NO GROWTH AFTER 5 DAYS OF INCUBATION. Complete Problem List/Assessment/Plan Problem List/Assessment/Plan Left foot cellulitis Gram-positive or Gram-negative bacteria SIRS not sepsis Left foot diabetic ulcer X-ray left foot: There is no evidence of acute fracture or dislocation. Soft tissues are unremarkable. In ER patient received vanco and cefazolin CT left foot shows No acute fracture or traumatic malalignment. No focal osteopenia or cortical destruction to suggest osteomyelitis. Continue Zosyn and vancomycin Blood culture-no growth I & D done by Podiatric On 12/19/2024 Continue current antibiotic which is sensitive to culture sensitivity Blood cultures x2 no growth Aerobic acid and zinc Pain management Abscess on lateral surface of left foot CT left foot shows : Loculated fluid collection of the plantar lateral hind foot at the level of the 5th MTP joint which could reflect small abscess (measuring up to 2.3 cm). Continue IV antibiotic I & D done by Podiatry On 12/19/2024, scheduled for closure tomorrow Lab shows no leukocytosis Hyponatremia No signs symptoms of hyponatremia BMP Vitamin-D deficiency Vitamin-D level 21.4 Vitamin-D 65603 units p.o. Q weekly Type 2 diabetes mellitus with hyperglycemia CMP glucose high Patient not on any home medicine Avoid sugar and sugar containing food Hemoglobin A1c 12.0 Insulin sliding scale Lantus bedtime Lispro before meal Blood sugar reviewed and shows higher side Optimize insulin Monitor blood sugars Diet :carbohydrate consistent GI prophylaxis: Pantoprazole DVT prophylaxis: Lovenox Goals of care discussions. 21 minute spent with patient. Full code status. Case discussed with Dr. Cates Plan discussed with: Patient, Other (Nurse) My Orders My Orders Orders - LANCE PENALOZA Procedure Category Date Status Time Piperacillin-Tazob PHA 12/22/24 In Process 3.375gm (Zosyn 3.375g 03:30 Vancomycin Per PARMINDER 12/23/24 In Process Pharmacy Protoc 06:00 Vancomycin,Trough LAB 12/23/24 Verified 05:00 Dietary Evaluation Review Comments: CCHO-60 diet + Carlos BID Expected Outcomes/Goals: controlled DM, healed wounds, gradual wt loss Date of Service: Dec 22, 2024 Billing Provider: MAIDA CATES MD Common Visit Codes: [id number] INP/OBS CARE(HIGH) LANCE PENALOZA Dec 22, 2024 15:55 MAIDA CATES MD Dec 30, 2024 20:15
[2024-12-22] MEDS: VANCOMYCIN 1.25GM/250ML 250 ML IV SCH (22:34)
[2024-12-23] VITALS (9 sets, daily range): BP systolic 129–143; BP diastolic 73–87; PULSE 71–100; RESP 18–22; TEMP 97.4–98.3; O2SAT 95–100
--- NOTE | 2024-12-23 05:37 | DVH ---
CHEST RADIOGRAPH Indication: Procedure Technique: Single frontal view of the chest was obtained Comparison: CHEST PORTABLE on DOS: 04/17/21 FINDINGS: Lines and Tubes: None Lungs: No focal consolidation. Pleura: No effusion. No pneumothorax. Cardiomediastinal contours: Unremarkable Bones: No acute osseous abnormality. IMPRESSION: 1. No acute cardiopulmonary disease.
[2024-12-23 08:10] LABS: Hematocrit 40.4 % (41.0-53.0); Hemoglobin 14.2 g/dL (13.5-17.5); Mean Corpuscular Hemoglobin 31.4 pg (28.0-32.0); Mean Corpuscular Volume 89.5 fL (80.0-100.0); Nucleated Red Blood Cells % 0.0 %
[2024-12-23 08:15] LABS: INR 1.08 (0.9-1.15); Partial Thromboplastin Time 27.9 SEC (24.5-34.5); Prothrombin Time 11.4 sec (9.3-11.8)
[2024-12-23 08:17] LABS: Alanine Aminotransferase 38 U/L (7-40); Albumin 3.9 g/dL (3.2-4.8); Alkaline Phosphatase 72 U/L (46-116); Anion Gap 12 (5-15); BUN/Creatinine Ratio 12.2 (10.0-20.0); Bilirubin, Total 0.6 mg/dL (0.2-1.0); Blood Urea Nitrogen 10 mg/dL (9-23); Calcium 9.7 mg/dL (8.7-10.4); Carbon Dioxide 25 mmol/L (20-31); Chloride 105 mmol/L (98-107); Potassium 3.5 mmol/L (3.5-5.1); Sodium 142 mmol/L (136-145); Total Protein 6.7 g/dL (5.7-8.2)
[2024-12-23 08:27] LABS: Glucose 155 mg/dL (74-106)
--- NOTE | 2024-12-23 12:16 | DVHPN2 ---
Subjective This is a 68-year-old male with past medical history of Type 2 diabetes mellitus not on any medication. Patient came to ER with left foot pain with redness dorso-lateral aspect of left foot for 5 days which is 10/10 during walking , and relieved mildly on rest, localized and occasionally radiate to tip of the finger. Denies any trauma or insect bite. Patient went to urgent care and prescribed doxycycline which does not helps and wound became getting worse day by day. He is not taking any medicine for last 1 year. Patient currently denies any fever, SOB, chest pain, abdominal pain, dysuria or any other acute distress. Changes from previous H/P or p: No Changes Eyes: No Pain, No Vision change, No Conjunctivae inflammation, No Eyelid inflammation, No Other, No Redness ENT: No Ear pain, No Ear discharge, No Nose pain, No Nose discharge, No Nose congestion, No Mouth pain, No Mouth swelling, No Throat pain, No Throat swelling, No Other Cardiovascular: No Chest Pain, No Palpitations, No Orthopnea, No Paroxysmal Noc. Dyspnea, No Edema, No Lt Headedness, No Other Respiratory: No Cough, No Dry, No Shortness of breath, No SOB with excertion, No Wheezing, No Hemoptysis, No Pleuritic Pain, No Sputum, No Other Gastrointestinal: No Nausea, No Vomiting, No Abdominal Pain, No Diarrhea, No Constipation, No Melena, No Hematochezia, No Other Genitourinary: No Dysuria, No Frequency, No Incontinence, No Hematuria, No Retention, No Other Musculoskeletal: No other, No neck pain, No shoulder pain, No arm pain, No back pain, No hand pain, No leg pain; foot pain (Erythema and local swelling dorsolateral aspect of left foot) Skin: No Rash, No Lesions, No Jaundice, No Bruising, No Other Objective Vitals Vital Signs Date Time Temp Pulse Resp B/P (MAP) Pulse Ox O2 Delivery O2 Flow Rate FiO2 12/23/24 09:00 98.1 80 18 133/81 (98) 97 98.1 12/22/24 20:00 Room Air* 0 21 Intake/Output Intake and Output 12/23/24 07:00 Intake Total 2250 ml Output Total 1900 ml Balance 350 ml Intake Oral 1550 ml IV Total 700 ml Output Urine Total 1900 ml # Bowel Movements 1 Exam Dermatological: Skin is dry with mild erythema and some maceration around the wound site No gross deformities noted Mild non-pitting edema present bilaterally Left lateral area of fluctuance a cellulitis Vascular: Dorsalis pedis and posterior tibial pulses are 1+ bilaterally Capillary refill is under 2 seconds Skin temperature is warm bilaterally Neurologic: Protective sensation is absent on the plantar forefoot bilaterally Monofilament testing reveals decreased sensation in multiple plantar sites Musculoskeletal: Range of motion at the ankle and MTP joints is within normal limits. Strength is 5/5 in all tested muscle groups. Gait is antalgic due to offloading of the affected limb. General Appearance: Alert, Oriented X3, Cooperative, No acute distress Lungs: Clear to auscultation, Normal air movement Abdomen: Normal bowel sounds, Soft, No tenderness Extremities: No edema Medications Current Medications Medications Dose Ordered Sig/Ilir Route Start Time Stop Time Status Last Admin Dose Admin Acetaminophen 325 mg Q4HP PRN PO 12/15/24 09:45 Acetaminophen/ Hydrocodone Bitart 1 tab Q4HP PRN PO 12/15/24 09:45 12/22/24 06:28 1 TAB Zinc Sulfate 220 mg DAILY PO 12/15/24 10:00 12/22/24 12:05 220 MG Ascorbic Acid 500 mg BID PO 12/15/24 10:00 12/22/24 21:31 500 MG Enoxaparin Sodium 40 mg DAILY SC 12/15/24 10:00 12/22/24 12:05 40 MG Diagnostic Test (Pha) 1 strip ACHS 12/15/24 11:30 12/23/24 11:54 1 STRIP Dextrose 50 ml UD PRN IV 12/15/24 09:45 Insulin Human Lispro AC SC 12/15/24 14:45 12/22/24 17:00 1 UNITS Vancomycin HCl 0 ml @ 0 mls/hr UD IV 12/15/24 16:30 Insulin Glargine 14 units HS SC 12/17/24 22:00 12/22/24 21:29 14 UNITS Insulin Human Lispro 6 units AC SC 12/19/24 08:30 12/22/24 17:00 6 UNITS Piperacillin Sod/ Tazobactam Sod 100 ml @ 25 mls/hr Q6H IV 12/22/24 03:30 12/23/24 08:58 25 MLS/HR Vancomycin HCl 250 ml @ 250 mls/hr Q8H IV 12/23/24 15:00 Laboratory Results Laboratory Tests 12/23/24 06:11 Chemistry Test 12/23/24 06:11 Albumin 3.9 g/dL (3.2-4.8) Calcium Level 9.7 mg/dL (8.7-10.4) Total Protein 6.7 g/dL (5.7-8.2) Coagulation Test 12/23/24 06:11 Prothrombin Time 11.4 sec (9.3-11.8) Prothrombin Time INR 1.08 (0.9-1.15) Activated Partial Thromboplast Time 27.9 SEC (24.5-34.5) LFT Test 12/23/24 06:11 Alanine Aminotransferase (ALT) 38 U/L (7-40) Alkaline Phosphatase 72 U/L (46-116) Aspartate Amino Transferase (AST) 33 U/L (13-40) Total Bilirubin 0.6 mg/dL (0.2-1.0) Urinalysis Test 12/21/24 02:05 Urine Color Light-yellow (Yellow) Urine Clarity Clear (Clear) Urine pH 6.0 (5.0-9.0) Urine Specific [place] 1.013 (1.001-1.035) Urine Protein Negative (Negative) Urine Ketones Trace (Negative) Urine Blood Negative /uL (Negative) Urine Nitrite Negative (Negative) Urine Bilirubin Negative (Negative) Urine Urobilinogen 2 mg/dL (Negative) H Urine Leukocyte Esterase Negative /uL (Negative) Urine RBC <1 /hpf (0 - 3) Urine Microscopic WBC 1 /HPF (0-3) Urine Squamous Epithelial Cells Few /hpf (<5) Urine Bacteria Few /hpf (None Seen) H Urine Glucose Normal mg/dL (Normal) Microbiology Microbiology Date/Time Source Procedure Growth Status 12/19/24 14:32 Foot Left Gram Stain - Final Resulted 12/19/24 14:32 Foot Left Anaerobic Culture - Preliminary Resulted 12/19/24 14:32 Aerobic Culture - Final Staphylococcus aureus Resulted 12/15/24 03:08 Blood Blood Culture - Final NO GROWTH AFTER 5 DAYS OF INCUBATION. Complete Assessment/Plan Assessment/Plan ASSESSMENT: Patient is a 59 year old seen on the floor follow up s/p foot I&D PLAN: - The patients chart was reviewed, clinical findings were discussed with the patient, the etiologies of the conditions were discussed in detail, and a treatment plan was agreed to at this time, with both oral and written instructions provided. - reviewed advanced imaging - reviewed all of the labs and pathology - discussed plan is to perform a subsequent incision and drainage - patient has been NPO since midnight - take him to the OR today - it was determined that multiple I&Ds will be necessary to save the limb - recommend discharged home on 2 weeks of p.o. antibiotics - can weightbear as tolerated in postoperative shoe All questions were answered and concerns addressed to the patient's satisfaction. The patient was given the phone number to the clinic and was told how to make contact with the clinic should any concerns or questions arise. Patient understands that if any questions or concerns arise prior to the next appointment, we should be contacted immediately. FOLLOW-UP: Continue to follow while inpatient Plan discussed with: Patient My Orders Orders - HASMUKH PITT DPM Procedure Category Date Status Time Npo (Nothing By DIET 12/23/24 Transmitted Mouth) Diet Breakfast Problem List: (1) Cellulitis of left foot (2) Hyperglycemia (3) Upper respiratory tract infection Visit Coding Podiatry Date of Service if different f: Dec 23, 2024 Billing Provider: HASMUKH PITT DPM Podiatry Common Visit Codes: [id number] INP/OBS CARE(HIGH) HASMUKH PITT DPM Dec 23, 2024 12:16
[2024-12-23] MEDS: VANCOMYCIN 1GM/250ML KIT 250 ML IV SCH (15:00)
[2024-12-23] MEDS ORDERED: PROPOFOL 10 MG/ML 20 ML IV ONE (15:18)
[2024-12-23] MEDS ORDERED: KETOROLAC TROMETH 30 MG/ML 1ML VIAL ONE (15:18)
[2024-12-23] MEDS ORDERED: GLYCOPYRROLATE 0.2 MG/ML 1ML VIAL ONE (15:18)
[2024-12-23] MEDS ORDERED: ONDANSETRON HCL 4 MG/2 ML VIAL ONE (15:18)
[2024-12-23] MEDS ORDERED: ceFAZolin 1GM VL ONE (16:05)
[2024-12-23] MEDS: BUPIVACAINE 0.5% INJ 50ML VIAL IJ ONE (16:11)
--- NOTE | 2024-12-23 16:20 | DVHOP2 ---
Operative Report - 2 Report Details Date: 12/23/24 Preop Diagnosis: 1. Left foot abscess 2. Left foot cellulitis 3. Left foot diabetic ulcer Postop Diagnosis: Same as preop Surgeon: Hasmukh Pitt MD Anesthesiologist: See anesthesia Anesthesia: Mac Consent: The patient was informed of the risks and benefits of the procedure. These include but are not limited to complications of anesthesia, postoperative infection, incomplete relief of symptoms, recurrence of symptoms, damage to blood vessels, nerves and tendons, deep venous thrombosis, pulmonary embolism and possible need for repeat surgery in the future. Complications: None Estimated Blood Loss: Minimal Fluids: See anesthesia Findings: Consistent with diagnosis Indications for Surgery: Worsening foot ulcer Name of Procedure Performed 1. Left foot I&D (82484) 2. Left foot delayed closure (60579) Procedure Details Procedure Details: PRE-PROCEDURE INFORMATION: In the pre-op holding area, the extremity to be operated on was clearly marked and the patient verified correct laterality of the marking. The patient was transferred to the OR table and placed in a supine position. A timeout was performed in which identification of the correct patient, procedure, location, and materials was done. The left foot and leg were prepped and draped in normal sterile fashion. DESCRIPTION OF PROCEDURE: Attention was directed to the left where previous incision was made. An incision was made over this area and was deepened through blunt dissection. The incision was deepened to the level of abscess and bone. Care was taken to the dissection to avoid any neurovascular and tendinous structures. The incision was deepened to the abscess appeared to be purulent fluid consistent with pus. Using a ronger, all necrotic tissue was removed. After the abscess was drained, the area was irrigated with 3 L normal saline using cysto tubing. A delayed closure was then performed using 2-0 nylon after was deemed appropriate with no longer concern for infection. POSTOPERATIVE INFORMATION: The patient tolerated the above noted procedure and anesthesia well and was transferred to the PACU with vital signs stable, and vascular status intact with capillary refill intact to all digits. Recommend 2 weeks of p.o. antibiotics. Leave dressings intact until follow up visit. Patie nt will follow up with me next week. Patient can weightbear as tolerated in a postoperative shoe. Condition Good Disposition Still a Patient Visit Coding Podiatry Date of Service if different f: Dec 23, 2024 Billing Provider: HASMUKH PITT DPM Podiatry Common Visit Codes: PROCEDURE ONLY HASMUKH PITT DPM Dec 23, 2024 16:20
--- NOTE | 2024-12-23 21:31 | DVHPNRES ---
Progress Note Date Seen: Dec 23, 2024 Resident Creating Document: LANCE PENALOZA RESIDENT Medical Necessity Reason Pt with a Central, PICC or Fol: No Subjective Review of Systems This is a 68-year-old male with past medical history of Type 2 diabetes mellitus not on any medication. Patient came to ER with left foot pain with redness dorso-lateral aspect of left foot for 5 days which is 10/10 during walking , and relieved mildly on rest, localized and occasionally radiate to tip of the finger. Denies any trauma or insect bite. Patient went to urgent care and prescribed doxycycline which does not helps and wound became getting worse day by day. He is not taking any medicine for last 1 year. Patient currently denies any fever, SOB, chest pain, abdominal pain, dysuria or any other acute distress. PAST MEDICAL HISTORY: DM2. Surgical History: Denies all surgeries Family History: father bone cancer, grandmother unknown cancer Social History: Smoker: Non-Smoker Alcohol: occasional ETOH Use Drugs: Denies Drug Use Lives In: Home pcp: not selected Patient seen and evaluated in bedside today. Patient denies any fever, abdominal pain, dysuria, chest pain. I and D done today by Podiatry. Patient medically stable for discharge. Objective vital signs Vital Sign Date Time Temp Pulse Resp B/P (MAP) Pulse Ox O2 Delivery O2 Flow Rate FiO2 12/23/24 17:00 98.1 71 18 130/77 (94) 95 98.1 12/23/24 08:30 Room Air* 0 21 Total Intake and Output 12/22/24 12/22/24 12/23/24 15:00 23:00 07:00 Intake Total 1450 ml 800 ml Output Total 1400 ml 500 ml Balance 50 ml 300 ml medications Current Medications Medications Dose Ordered Sig/Ilir Route Start Time Stop Time Status Last Admin Dose Admin Acetaminophen 325 mg Q4HP PRN PO 12/15/24 09:45 Acetaminophen/ Hydrocodone Bitart 1 tab Q4HP PRN PO 12/15/24 09:45 12/22/24 06:28 1 TAB Zinc Sulfate 220 mg DAILY PO 12/15/24 10:00 12/22/24 12:05 220 MG Ascorbic Acid 500 mg BID PO 12/15/24 10:00 12/22/24 21:31 500 MG Enoxaparin Sodium 40 mg DAILY SC 12/15/24 10:00 12/22/24 12:05 40 MG Diagnostic Test (Pha) 1 strip ACHS 12/15/24 11:30 12/23/24 17:00 1 STRIP Dextrose 50 ml UD PRN IV 12/15/24 09:45 Insulin Human Lispro AC SC 12/15/24 14:45 12/22/24 17:00 1 UNITS Vancomycin HCl 0 ml @ 0 mls/hr UD IV 12/15/24 16:30 Insulin Glargine 14 units HS SC 12/17/24 22:00 12/22/24 21:29 14 UNITS Insulin Human Lispro 6 units AC SC 12/19/24 08:30 12/23/24 17:00 6 UNITS Piperacillin Sod/ Tazobactam Sod 100 ml @ 25 mls/hr Q6H IV 12/22/24 03:30 12/23/24 08:58 25 MLS/HR Vancomycin HCl 250 ml @ 250 mls/hr Q8H IV 12/23/24 15:00 Examination General Appearance: Alert, Oriented X3, Cooperative, No acute distress HEENT: Atraumatic, PERRLA Respiratory: Clear to auscultation, Normal air movement Cardiovascular: Regular rate, Normal S1, Normal S2, No murmurs Abdominal: Normal bowel sounds, Soft, No tenderness, No hepatospenomegaly Extremities: No clubbing, No cyanosis, left foot covered with dry bandage Neuro: Normal gait, Normal speech, Strength at 5/5 X4 ext laboratory and microbiology Laboratory Tests 12/23/24 06:11 Test 12/23/24 06:11 Range/Units Serum Glucose 155 H 74-106 mg/dL Microbiology Date/Time Source Procedure Growth Status 12/19/24 14:32 Foot Left Gram Stain - Final Resulted 12/19/24 14:32 Foot Left Anaerobic Culture - Preliminary Resulted 12/19/24 14:32 Aerobic Culture - Final Staphylococcus aureus Resulted 12/15/24 03:08 Blood Blood Culture - Final NO GROWTH AFTER 5 DAYS OF INCUBATION. Complete Problem List/Assessment/Plan Problem List/Assessment/Plan Left foot cellulitis Gram-positive or Gram-negative bacteria SIRS not sepsis Left foot diabetic ulcer X-ray left foot: There is no evidence of acute fracture or dislocation. Soft tissues are unremarkable. In ER patient received vanco and cefazolin CT left foot shows No acute fracture or traumatic malalignment. No focal osteopenia or cortical destruction to suggest osteomyelitis. Continue Zosyn and vancomycin Blood culture-no growth podiatry recommended multiple I and D we will be necessary. Send home with 2 weeks of antibiotic. Can weightbear as tolerated. Continue current antibiotic which is sensitive to culture sensitivity Blood cultures x2 no growth Aerobic acid and zinc Pain management Abscess on lateral surface of left foot CT left foot shows : Loculated fluid collection of the plantar lateral hind foot at the level of the 5th MTP joint which could reflect small abscess (measuring up to 2.3 cm). Continue IV antibiotic Lab shows no leukocytosis Hyponatremia No signs symptoms of hyponatremia BMP Vitamin-D deficiency Vitamin-D level 21.4 Vitamin-D 90414 units p.o. Q weekly Type 2 diabetes mellitus with hyperglycemia CMP glucose high Patient not on any home medicine Avoid sugar and sugar containing food Hemoglobin A1c 12.0 Insulin sliding scale Lantus bedtime Lispro before meal Blood sugar reviewed and shows higher side Optimize insulin Monitor blood sugars Diet :carbohydrate consistent Obesity, BMI 30.1 Lifestyle modification GI prophylaxis: Pantoprazole DVT prophylaxis: Lovenox Goals of care discussions. 19 minute spent with patient. Full code status. Case discussed with Plan discussed with: Patient, Other (Nurse) My Orders My Orders Orders - LANCE PENALOZA Procedure Category Date Status Time Vancomycin 1gm/250ml PHA 12/23/24 In Process Kit 15:00 Vancomycin Per PARMINDER 12/23/24 In Process Pharmacy Protoc 15:00 Creatinine LAB 12/24/24 Verified 04:00 Vancomycin,Trough LAB 12/24/24 Verified 14:00 Dietary Evaluation Review Comments: CCHO-60 diet + Carlos BID Expected Outcomes/Goals: controlled DM, healed wounds, gradual wt loss Date of Service: Dec 23, 2024 Billing Provider: PEPITO GOLDEN MD Common Visit Codes: [id number] INP/OBS CARE(HIGH) LANCE PENALOZA Dec 23, 2024 21:31 PEPITO GOLDEN MD Dec 26, 2024 15:46
[2024-12-24 05:00] VITALS: BP 112/90; PULSE 82; RESP 20; TEMP 97.7; O2SAT 96
[2024-12-24 07:37] LABS: Anion Gap 11 (5-15); Carbon Dioxide 23 mmol/L (20-31); Chloride 102 mmol/L (98-107); Potassium 3.7 mmol/L (3.5-5.1)
[2024-12-24 07:38] LABS: Calcium 9.4 mg/dL (8.7-10.4)
[2024-12-24 07:40] LABS: Hematocrit 38.8 % (41.0-53.0); Hemoglobin 13.8 g/dL (13.5-17.5); Mean Corpuscular Hemoglobin 32.0 pg (28.0-32.0); Mean Corpuscular Volume 89.7 fL (80.0-100.0); Nucleated Red Blood Cells % 0.0 %
[2024-12-24 07:43] LABS: BUN/Creatinine Ratio 19.1 (10.0-20.0); Blood Urea Nitrogen 13 mg/dL (9-23)
[2024-12-24 07:44] LABS: Glucose 220 mg/dL (74-106); Sodium 136 mmol/L (136-145)
[2024-12-24 08:00] VITALS: PULSE 75; RESP 15; O2SAT 95
[2024-12-24 09:00] VITALS: BP 113/73; PULSE 75; RESP 15; TEMP 98.2; O2SAT 95
[2024-12-24] MEDS ORDERED: AUG875T PO (10:27)
[2024-12-24] MEDS ORDERED: INSLISPI SC (10:27)
[2024-12-24] MEDS ORDERED: INSLANTI SC (10:27)
[2024-12-24] MEDS ORDERED: ASCO500T11 PO (10:27)
[2024-12-24] MEDS ORDERED: ACET-1882 PO (10:27)
[2024-12-24 13:00] VITALS: BP 107/75; PULSE 76; RESP 18; TEMP 97.6; O2SAT 95
--- NOTE | 2024-12-24 13:51 | DVHDSRES ---
Discharge Summary Date of Admission Resident Creating Document: LANCE PENALOZA RESIDENT Dec 15, 2024 at 09:37 Date of Discharge: Dec 24, 2024 Labs/Diagnostic Data: Laboratory Results Test 12/24/24 11:25 12/24/24 06:40 12/23/24 06:11 12/21/24 02:05 POC Glucose 240 mg/dl (70-106) White Blood Count 6.3 10^3/uL (4.4-10.8) Red Blood Count 4.32 10^6/uL (4.5-5.90) Hemoglobin 13.8 g/dL (13.5-17.5) Hematocrit 38.8 % (41.0-53.0) Mean Corpuscular Volume 89.7 fL (80.0-100.0) Mean Corpuscular Hemoglobin 32.0 pg (28.0-32.0) Mean Corpuscular Hemoglobin Concent 35.6 g/dL (32.0-36.0) Red Cell Distribution Width 12.4 % (11.8-14.3) Platelet Count 281 10^3/uL (140-450) Mean Platelet Volume 7.3 fL (6.9-10.8) Neutrophils (%) (Auto) 68.8 % (37.0-80.0) Lymphocytes (%) (Auto) 23.9 % (10.0-50.0) Monocytes (%) (Auto) 7.1 % (0.0-12.0) Eosinophils (%) (Auto) 0.0 % (0.0-7.0) Basophils (%) (Auto) 0.2 % (0.0-2.0) Neutrophils # (Auto) 4.3 10 ^3/uL (1.6-8.6) Lymphocytes # (Auto) 1.5 10 ^3/uL (0.4-5.4) Monocytes # (Auto) 0.5 10 ^3/uL (0-1.3) Eosinophils # (Auto) 0 10 ^3/uL (0-0.8) Basophils # (Auto) 0 10 ^3/uL (0-0.2) Nucleated Red Blood Cells 0.0 % Sodium Level 136 mmol/L (136-145) Potassium Level 3.7 mmol/L (3.5-5.1) Chloride Level 102 mmol/L (98-107) Carbon Dioxide Level 23 mmol/L (20-31) Anion Gap 11 (5-15) Blood Urea Nitrogen 13 mg/dL (9-23) Creatinine 0.68 mg/dL (0.700-1.30) Glomerular Filtration Rate Calc 108 mL/min (>90) BUN/Creatinine Ratio 19.1 (10.0-20.0) Serum Glucose 220 mg/dL (74-106) Calcium Level 9.4 mg/dL (8.7-10.4) Prothrombin Time 11.4 sec (9.3-11.8) Prothrombin Time INR 1.08 (0.9-1.15) Activated Partial Thromboplast Time 27.9 SEC (24.5-34.5) Total Bilirubin 0.6 mg/dL (0.2-1.0) Aspartate Amino Transferase (AST) 33 U/L (13-40) Alanine Aminotransferase (ALT) 38 U/L (7-40) Alkaline Phosphatase 72 U/L (46-116) Total Protein 6.7 g/dL (5.7-8.2) Albumin 3.9 g/dL (3.2-4.8) Vancomycin Level Trough 17.9 ug/mL (5-10) Urine Color Light-yellow (Yellow) Urine Clarity Clear (Clear) Urine pH 6.0 (5.0-9.0) Urine Specific Claridge 1.013 (1.001-1.035) Urine Protein Negative (Negative) Urine Ketones Trace (Negative) Urine Blood Negative /uL (Negative) Urine Nitrite Negative (Negative) Urine Bilirubin Negative (Negative) Urine Urobilinogen 2 mg/dL (Negative) Urine Leukocyte Esterase Negative /uL (Negative) Urine RBC <1 /hpf (0 - 3) Urine Microscopic WBC 1 /HPF (0-3) Urine Squamous Epithelial Cells Few /hpf (<5) Urine Bacteria Few /hpf (None Seen) Urine Glucose Normal mg/dL (Normal) Test 12/16/24 05:20 12/15/24 03:05 Hemoglobin A1c 12.0 % A1C (<5.7) Triglycerides Level 150 mg/dL (< 150) Cholesterol Level 133 mg/dL (< 200) LDL Cholesterol 88 mg/dL (< 100) HDL Cholesterol 26 mg/dL (40-59) Vitamin B12 Level 1197 pg/mL (211-911) Vitamin D 25-Hydroxy 21.4 ng/mL (30.0-100) Thyroid Stimulating Hormone (TSH) 1.43 uIU/mL (0.55-4.78) Lactic Acid Level 1.1 mmol/L (0.4-2.0) Other Laboratory Tests 12/24/24 06:40 Brief Hx & Hospital Course: This is a 68-year-old male with past medical history of Type 2 diabetes mellitus not on any medication. Patient came to ER with left foot pain with redness dorso-lateral aspect of left foot for 5 days which is 10/10 during walking , and relieved mildly on rest, localized and occasionally radiate to tip of the finger. Denies any trauma or insect bite. Patient went to urgent care and prescribed doxycycline which does not helps and wound became getting worse day by day. He is not taking any medicine for last 1 year. Patient currently denies any fever, SOB, chest pain, abdominal pain, dysuria or any other acute distress. PAST MEDICAL HISTORY: DM2. Surgical History: Denies all surgeries Family History: father bone cancer, grandmother unknown cancer Social History: Smoker: Non-Smoker Alcohol: occasional ETOH Use Drugs: Denies Drug Use Lives In: Home pcp: not selected Hospital course: Patient admitted due to left foot cellulitis/ left foot diabetic ulcer to MSSA (seen in culture of I&D). Completed X-ray left foot: There is no evidence of acute fracture or dislocation. Soft tissues are unremarkable. CT left foot shows No acute fracture or traumatic malalignment. No focal osteopenia or cortical destruction to suggest osteomyelitis, Loculated fluid collection of the plantar lateral hind foot at the level of the 5th MTP joint which could reflect small abscess (measuring up to 2.3 cm) .Treated with empiric antibiotic Zosyn and vancomycin. Blood culture x2 shows no growth. Podiatry consulted due to left foot abscess. I and D done by Podiatry on 2024 and closure done on 2024. As per podiatry, multiple I and D we will be necessary, discharge home with 2 weeks of antibiotic and follow-up with podiatry within 2 weeks after discharge. During admission, patient hemoglobin A1c 12.0. Patient was not in any diabetic medication since last 1 year. Hyperglycemia controlled with basal bolus insulin. Patient advised and recommended to follow-up with primary care within 2 weeks after discharge, monitor blood sugar at home, continue diabetic medication. during hospital stay patient treated for acute and chronic condition. patient currently denies any fever, SOB, chest pain, dysuria, abdominal pain or any other acute symptoms. patient discharged with Augmentin per orally antibiotic for 2 weeks. Patient is hemodynamically stable for discharge. The patient has received maximum benefits from inpatient treatment. Time was given to answer patient/ parents questions and concerns in Layman terms. patient verbalized understanding and agree with treatment and follow-up. Patient was recommended to return to the ED if she experiences any worsening symptoms such as, but not limited to current symptoms. Continue current home medication. follow-up with discharge Clinic within 2 weeks on Monday morning and follow up with PCP and podiatry within 2 weeks after discharge . Patient also need to follow-up with ophthalmology for annual eye exam. Patient educated and advised to resume home medication. Physical examination Constitutional: No: Fever, Chills, Sweats, Weakness, Malaise, Other Eyes: No: Pain, Vision change, Conjunctivae inflammation, Eyelid inflammation, Other, Redness ENT: No: Ear pain, Ear discharge, Nose pain, Nose discharge, Nose congestion, Mouth pain, Mouth swelling, Throat pain, Throat swelling, Other Respiratory: Shortness of breath; No: Cough, Dry, SOB with excertion, Wheezing, Hemoptysis, Pleuritic Pain, Sputum, Wheezing, Other Cardiovascular: No: Chest Pain, Palpitations, Orthopnea, Paroxysmal Noc. Dyspnea, Edema, Lt Headedness, Other Gastrointestinal: No: Nausea, Vomiting, Abdominal Pain, Diarrhea, Constipation, Melena, Hematochezia, Other Genitourinary: No Dysuria, No Frequency, No Incontinence, No Hematuria, No Retention, No Other Musculoskeletal: No: other, neck pain, shoulder pain, arm pain, left foot covered with dry bandage Skin: No: Rash, Lesions, Jaundice, Bruising, Other Neurological: No: Weakness, Numbness, Incoordination, Change in speech, Confusion, Seizures, Other Operations or Procedures ORDERING PHYSICIAN: MARILIA ROMO MD PROCEDURE(s): LFOOT - L FOOT 3 VIEW XRAY REASON: red swelling ORDER NUMBER(s): [id number], ACCESSION NUMBER(s): [id number] CLINICAL INDICATION: red swelling TECHNIQUE: XY L FOOT 3 VIEW XRAY Comparison: None FINDINGS/IMPRESSION: : There is no evidence of acute fracture or dislocation. Soft tissues are unremarkable. Atherosclerotic vascular calcifications ATED BY: DANIELLE GUADARRAMA MD DICTATED DATE/TIME: 12/15/24 0350 ORDERING PHYSICIAN: LANCE PENALOZA PROCEDURE(s): LLEX - LEFT LOWER EXTREMITY W/O CON REASON: LEFT FOOT CELLULITIS TO RULE OUT OSTEOMYELITIS. ORDER NUMBER(s): [id number], ACCESSION NUMBER(s): [id number] CLINICAL HISTORY: LEFT FOOT CELLULITIS TO RULE OUT OSTEOMYELITIS. TECHNIQUE: CT of the left lower extremity was performed without intravenous contrast. This exam was performed according to our departmental dose optimization program. Up-to-date CT equipment and radiation dose reduction techniques are utilized as appropriate. CTDI 7.75 mGy DLP 188.65 mGy.cm COMPARISON: None FINDINGS: Normal mineralization and alignment. Joint spaces are preserved. No acute fracture. No focal osteopenia or cortical destruction to suggest osteomyelitis. There is a loculated fluid collection at the plantar aspect of the lateral hindfoot at the level of the 5th MTP joint measuring 1.9 x 2.3 cm on series 3, image 153. Mild subcutaneous edema in the left foot. Calcified athero sclerosis is seen. No soft tissue gas. IMPRESSION: 1. No acute fracture or traumatic malalignment. No focal osteopenia or cortical destruction to suggest osteomyelitis. 2. Loculated fluid collection of the plantar lateral hindfoot at the level of the 5th MTP joint which could reflect small abscess (measuring up to 2.3 cm). 3. Mild subcutaneous edema of the left foot. ATED BY: XU APARICIO MD DICTATED DATE/TIME: 12/17/24 1601 ORDERING PHYSICIAN: LANCE PENALOZA PROCEDURE(s): CXR1 - CHEST XRAY 1 VIEW REASON: Procedure ORDER NUMBER(s): [id number], ACCESSION NUMBER(s): [id number] CHEST RADIOGRAPH Indication: Procedure Technique: Single frontal view of the chest was obtained Comparison: CHEST PORTABLE on DOS: 04/17/21 FINDINGS: Lines and Tubes: None Lungs: No focal consolidation. Pleura: No effusion. No pneumothorax. Cardiomediastinal contours: Unremarkable Bones: No acute osseous abnormality. IMPRESSION: 1. No acute cardiopulmonary disease. ATED BY: ALMA DELIA CAIN MD DICTATED DATE/TIME: 12/23/24 0534 Condition at Discharge: Good Final Diagnosis/Problems List Left foot cellulitis to MSSA SIRS not sepsis Left foot diabetic ulcer Abscess on lateral surface of left foot s/p I&D Type 2 diabetes mellitus with hyperglycemia Vitamin-D deficiency Hyponatremia Obesity Discharge Disposition: Home Discharge Instruct/Medications Diet: Consistent carbohydrate Activity: No Restrictions, As Tolerated Follow Up/Referral: PCP Outpatient clinic within week after discharge, Monday morning Follow-up with podiatry 2-4 weeks after discharge Scheduled Amoxicillin & Pot Clavulanate (Augmentin Tablet), 875 MG PO BID Ascorbic Acid (Vitamin C Tablet), 500 MG PO BID Insulin Glargine (Lantus), 14 UNITS SC HS Insulin Lispro (Human) (Humalog), 6 UNITS SC AC Metformin Hydrochloride (Metformin Hcl), 1 TAB PO BID Scheduled PRN Acetaminophen (Acetaminophen), 325 MG PO Q4HP PRN Durable Medical Equipment Blood Glucose Monitoring Suppl (Blood Glucose System Andrés), UNIT XX TIDPRN PRN, (DME) Lancets Misc. (Accu-Chek Fastclix Lancet), UNIT XX TIDWMEALS, (DME) Discharge Statement: "Patient was advised to return to the ER or call 911 if any headaches, dizziness, shortness of breath, chest pain, abdominal pain, bleeding, fevers, or worsening of medical condition. Patient was counseled about treatment plan, medications, possible side effects, patientverbalized understanding. All questions were answered to the best of my ability. This discharge took greater then 30 minutes in planning, reviewing documentation, counseling the patient, and discussing with other team members." ASSESSMENT ASSESSMENT Assessment Left foot cellulitis, abscess left foot s/p I&D Date of Service: Dec 24, 2024 Billing Provider: PEPITO GOLDEN MD Common Visit Codes: 06210-PUQ/OBS DISCH DAY >30min LANCE PENALOZA RESIDENT Dec 24, 2024 13:51 MARTIN WINTERS RESIDENT Dec 29, 2024 18:47 PEPITO GOLDEN MD Dec 31, 2024 16:18
[2024-12-24] MEDS ORDERED: KETAMINE 50mg/ML 1ml syringe IV ONE (16:12)
[2024-12-24] MEDS ORDERED: METF-370 PO (16:25)
[2024-12-24] MEDS ORDERED: BLOOKIT79 XX (16:25)
[2024-12-24] MEDS ORDERED: LANCKIT12 XX (16:25)
[2024-12-24 17:00] VITALS: BP 120/71; PULSE 56; RESP 16; TEMP 98; O2SAT 97
== END 2024-12-24 18:35 | disposition home or self-care (01) | DRG 603 ==
LOC: ER 02:39 → OVERFLOW 09:37 → WEST WING 21:33
PROVIDERS: ADMIT Student in an Organized Health Care Education/Training Program; ATTEND Student in an Organized Health Care Education/Training Program
PROC: 0J9R0ZZ Drainage of Left Foot Subcutaneous Tissue and Fascia, Open Approach (ICD-10-PCS; principal; 2024-12-19 13:45)
PROC: 0J9R0ZZ Drainage of Left Foot Subcutaneous Tissue and Fascia, Open Approach (ICD-10-PCS; 2024-12-23)
DX: L03.116 Cellulitis of left lower limb (principal); E87.1 Hypo-osmolality and hyponatremia; R65.10 Systemic inflammatory response syndrome (SIRS) of non-infectious origin without acute organ dysfunction; L02.612 Cutaneous abscess of left foot; E11.621 Type 2 diabetes mellitus with foot ulcer; I10 Essential (primary) hypertension; E11.65 Type 2 diabetes mellitus with hyperglycemia; E55.9 Vitamin D deficiency, unspecified; L97.529 Non-pressure chronic ulcer of other part of left foot with unspecified severity; Z80.8 Family history of malignant neoplasm of other organs or systems; Z79.899 Other long term (current) drug therapy
CPT/HCPCS: 36415; 71045; 73630; 73700; 80048; 80053; 80061; 80202; 81001; 82306; 82565; 82607; 82962; 83036; 83605; 84443; 85025; 85610; 85730; 86850; 86900; 86901; 87040; 87070; 87075; 87077; 87186; 87205; 96365; G0378; J0690; J1100; J1815; J1885; J2003; J2250; J2405; J2543; J2704; J3490